=== PATIENT | male | born 1950 | race Caucasian/White ===

== ENCOUNTER → 2016-08-28 | Outpatient (CLI) | payer MEDICARE ==
[~2016-08-28] MED LIST: ACET-819; ASP81TEC PO; CYCL10TA9 PO; LORA10CA; NAPR-243 PO; TRM50T PO
--- NOTE | 2016-09-01 19:22 | ECHOCARDIOGRAPHY REPORT ---
DATE OF SERVICE: 08/28/2016 ECHOCARDIOGRAM ORDERING PHYSICIAN: Naheed Benites APRN CLINICAL DIAGNOSES: Cardiac systolic murmur, coronary artery disease, hyperlipidemia. MEASUREMENTS: Aortic root, 3.9. Left atrium, 4. LV diameter diastolic, 4.2. aVF thickness diastolic, 1.1. LVPW thickness diastolic, 1.1. DESCRIPTION: Two dimensional echocardiography shows normal global left ventricular systolic function without any distinct regional wall motion abnormality. Aortic, mitral and tricuspid valve leaflets show good leaflet excursion. There is moderate aortic valve sclerosis and calcification. Aortic valve leaflet structure is not very well visualized. Doppler imaging shows trivial mitral and tricuspid regurgitation. Pulmonary artery systolic pressure is estimated to be within normal limits. There is no Doppler evidence of any significant valvular stenosis. Subcostal views are limited and difficult. On the views available, there did not appear to be any distinct evidence of significant intracardiac shunt. However, the subcostal views are limited and intracardiac shunt cannot be excluded on this study. CONCLUSIONS: 1. Normal global left ventricular systolic function with ejection fraction 55% of 60%. 2. Trivial mitral and tricuspid regurgitation. 3. Aortic valve sclerosis, moderate, without valvular stenosis. 4. Pulmonary artery systolic pressure is estimated to be within normal limits. Job ID: [id number] DocumentID: [id number] Dictated Date: 09/01/2016 15:37:15 Quality Control Manager Date: 09/01/2016 17:14:44 Dictated By: JAVON COWAN MD, MA, FACP, FACC,
== END ==
LOC: CARD 15:12
PROVIDERS: ATTEND Nurse Practitioner Family
DX: I35.8 Other nonrheumatic aortic valve disorders (principal); I25.10 Atherosclerotic heart disease of native coronary artery without angina pectoris; E78.4 Other hyperlipidemia
CPT/HCPCS: 93306

== ENCOUNTER 2017-01-07 09:26 | Outpatient (CLI) | payer MEDICARE ==
[~2017-01-07] VITALS: Ht 180.3 cm; Wt 100.8 kg
[2017-01-07 09:47] VITALS: BP 132/73
[2017-01-07 10:21] LABS: ANION GAP 8 MMOL/L (5-14); BLOOD UREA NITROGEN 11 MG/DL (7-18); BUN/CREATININE RATIO 11; CALCIUM 8.9 MG/DL (8.5-10.1); CARBON DIOXIDE 24 MMOL/L (21-32); CHLORIDE 106 MMOL/L (98-107); CREATININE SERUM 1.04 MG/DL (0.60-1.30); GFR ESTIMATED > 60; GLUCOSE 109 MG/DL (70-105); POTASSIUM 4.2 MMOL/L (3.6-5.0); SODIUM 138 MMOL/L (135-145)
[2017-01-07] MEDS ORDERED: ASPI-999 PO (10:35)
[2017-01-07] MEDS ORDERED: METO-333 PO (10:35)
[2017-01-07] MEDS ORDERED: FURO-124 PO (10:35)
[2017-01-07] MEDS ORDERED: LEVO137T2 PO (10:35)
[2017-01-07] MEDS ORDERED: POTA10CA43 PO (10:35)
== END 2017-01-07 10:36 | disposition home or self-care (01) ==
LOC: PREOP 09:26
PROVIDERS: ATTEND Orthopaedic Surgery
DX: Z01.812 Encounter for preprocedural laboratory examination (principal); S83.242A Other tear of medial meniscus, current injury, left knee, initial encounter; X58.XXXA Exposure to other specified factors, initial encounter; Y99.8 Other external cause status
CPT/HCPCS: 36415; 80048; 87081

== ENCOUNTER 2017-01-13 07:31 | Day surgery (SDC) | payer MEDICARE ==
--- NOTE | 2017-01-05 16:22 | HISTORY AND PHYSICAL ---
DATE OF SERVICE: This is for outpatient surgery on 01/13/2017 for left knee arthroscopy. HISTORY: The patient is a 66-year-old gentleman with complaints of left knee pain. He has undergone treatment with injections which provided temporary relief of his symptoms. He reports pain on the lateral aspect of his knee. He reports popping, catching and swelling. He also reports pain medially. He ambulates with a cane occasionally due to the pain, due to functional impairment and failure to improve with conservative measures. The patient has elected to proceed with surgical intervention. REVIEW OF SYSTEMS: No chest pain. No shortness of breath, no dysuria. PAST MEDICAL HISTORY: Coronary artery disease, chronic obstructive pulmonary disease, lumbago, hyperlipidemia, hypothyroidism. PAST SURGICAL HISTORY: Rhinoplasty, coronary stent, CABG. FAMILY HISTORY: Cancer, lung disease, ischemic heart disease. PRIMARY CARE PHYSICIAN: Dr. Daniels. MEDICATIONS: 1. Furosemide. 2. Metoprolol. 3. Lipitor. 4. Nitrostat. 5. ProAir. 6. Pravastatin. 7. Prednisone. 8. Advair. 9. Levothyroxine. 10. Aspirin. 11. Potassium. ALLERGIES: No known drug allergies. SOCIAL HISTORY: The patient smokes one pack of cigarettes per day. Drinks alcohol occasionally. PHYSICAL EXAMINATION: GENERAL: The patient is well-developed, well-nourished in no acute distress. HEENT: Normocephalic and atraumatic. Pupils are equal, round and reactive to light. Oropharynx is clear. NECK: Supple. No lymphadenopathy. LUNGS: Clear to auscultation bilaterally. HEART: Regular rate and rhythm. ABDOMEN: Soft, nontender and nondistended. EXTREMITIES: The left knee demonstrates no erythema or warmth. No skin lesions. Range of motion is 0/0/130. He has tenderness over the medial and lateral joint lines and has pain medially with Marsha's. He has pain with with crepitus noted. He is stable in all planes. 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 PLAN: Left knee arthroscopy with partial medial meniscectomy and chondroplasty. The risks, benefits, options, ramifications and recovery have been discussed with the patient. He understands and wishes to proceed. Job ID: [id number] DocumentID: [id number] Dictated Date: 01/05/2017 15:12:34 Structures Technician Date: 01/05/2017 16:21:56 Dictated By: DIONE ISABEL MD
[~2017-01-13] VITALS: Ht 180.3 cm; Wt 100.8 kg
[~2017-01-13 07:31] MED LIST changes: +ASPI-999 PO; +FURO-124 PO; +LEVO137T2 PO; +METO-333 PO; +POTA10CA43 PO
[2017-01-13] MEDS ORDERED: LACTATED RINGERS 1,000 ML IV PRN (07:47)
[2017-01-13] MEDS ORDERED: CATHETER FLUSH 10 ML SYR IV PRN (08:00)
[2017-01-13] MEDS ORDERED: ceFAZolin 1 GM/NS 50 ML IVPB IV ONE ×2 (08:00)
[2017-01-13] MEDS ORDERED: MIDAZOLAM 2 MG/2 ML (VERSED) VIAL IV ONE (08:00)
[2017-01-13] MEDS ORDERED: SEVOFLURANE (ULTANE) 15 ML INHAL SOLN ONE ×2 (08:23→09:13)
[2017-01-13] MEDS ORDERED: fentaNYL INJECTION 100 MCG/2 ML AMP ONE (08:23)
[2017-01-13] MEDS ORDERED: DEXAMETHASONE 10 MG/ML (DECADRON) 1 ML VIAL ONE (08:23)
[2017-01-13] MEDS ORDERED: proPOfol 200 MG/20 ML (DIPRIVAN) VIAL IV ONE (08:23)
[2017-01-13] MEDS ORDERED: LIDOCAINE PF 2% 5 ML (XYLOCAINE) VIAL ONE (08:23)
[2017-01-13] MEDS ORDERED: ONDANSETRON 4 MG/2 ML (SDV) Z0FRAN ONE (08:23)
[2017-01-13] MEDS ORDERED: RT-ALBUINH IH (08:36)
[2017-01-13 08:40] VITALS: BP 126/98
--- NOTE | 2017-01-13 08:47 | Progress Note-Pre Operative ---
Pre-Operative Progress Note H&P Reviewed The H&P was reviewed, patient examined and no changes noted. Date Seen by Provider: Jan 13, 2017 Time Seen by Provider: 08:47 Date H&P Reviewed: Jan 13, 2017 Time H&P Reviewed: 08:47 Pre-Operative Diagnosis: left knee medial meniscus tear and chondromalacia DIONE ISABEL MD Jan 13, 2017 08:47
--- NOTE | 2017-01-13 08:49 | Progress Note-Post Operative ---
Post-Operative Progess Note Surgeon (s)/Semiconductor Package Symbol Stamper (s) Surgeon DIONE ISABEL MD Semiconductor Package Symbol Stamper: Nilay Hernandes Pre-Operative Diagnosis left knee medial meniscus tear and chondromalacia Post-Operative Diagnosis left knee medial and lateral meniscus tears and chondromalacia of the medial femoral condyle and medial tibial plateau Procedure & Operative Findings Date of Procedure 01/13/17 Procedure Performed/Findings left knee arthroscopic partial medial and lateral meniscectomies and chondroplasty of the medial femoral condyle and medial tibial plateau Anesthesia Type GETA Estimated Blood Loss Estimated blood loss (mL): minimal Specimens/Packing Specimens Removed none Packing: none DIONE ISABEL MD Jan 13, 2017 08:49
[2017-01-13] MEDS ORDERED: HYDROcodone/APAP 7.5 MG/325 MG (LORTAB, LORCET PLUS) TABLET PO PRN (09:00)
[2017-01-13] MEDS ORDERED: BUPIVACAINE 0.25% 30 ML (SENSORCAINE) VIAL ONE (09:14)
[2017-01-13] MEDS ORDERED: morphine PF (DURAMORPH) 10 MG/10 ML AMP ONE (09:14)
[2017-01-13] MEDS ORDERED: meTOprolol 5 MG/5 ML (LOPRESSOR) VIAL ONE (09:14)
[2017-01-13] MEDS ORDERED: ONDANSETRON 4 MG/2 ML (SDV) Z0FRAN IVP PRN (09:45)
[2017-01-13] MEDS ORDERED: morphine INJ 10 MG/ML 1ML (SYR OR VIAL) IVP PRN (09:45)
[2017-01-13] MEDS ORDERED: fentaNYL INJECTION 100 MCG/2 ML AMP IVP PRN (09:45)
[2017-01-13 10:20] VITALS: BP 140/89
[2017-01-13] MEDS ORDERED: HYDR-3816 PO (10:43)
[2017-01-13 10:50] VITALS: BP 132/77
--- NOTE | 2017-01-13 11:18 | Physical Therapy Ortho Eval ---
PT Orthopedic Evaluation Type of Surgery Knee Scope Elective Left knee scope due to progressive pain and degeneration. Reports his knee feels better than it did before surgery today. Prior Level of Function Current Living Status: Spouse Locomotion (Upon Admit): Independent Established Durable Medical Eq: Straight Cane Subjective Subjective Pt reports he is feeling good and ready to get home. He is hoping to golf later this week. Entry Into Home: Stairs With Railing Steps Into Home: 2 Steps Accessories: Railing Present Motor Control Motor Control: Motor Control WNL ROM ROM: WFL, except focal deficit left knee active 8-110 degrees Strength Strength: WFL Transfer Transfers (B, C, W/C) (FIM): 6 Gait Gait Assistive Device: Cane Single Point Left Lower Extremity: Left Weight Bearing Status LLE: Weight Bearing/Tolerated Instructed patient on sequence for stair ambulation. Advised to limit time on his leg today with instruction to ice and elevate. Distance (FIM): 3=150 ft Distance: 150 Gait Level of Assist: 6 Summary/Comments demonstrates safe use of single pain cane Treatment Rendered Treatment: Therapeutic Exercises, Issued Written HEP Exercise Instruction: Quad Sets, Straight Leg Raise, Heel Slides Assessment/Goals Goal Time Frame: 1 Visit Understands HEP: Yes Safe Ambulation: Yes Plan Treatment Plan: Discharge Treatment Duration: 1 visit Visits Per Week: 1 PT/Family Agrees to Plan: Yes Time Time In: 1050 Time Out: 1110 Total Billed Treatment Time: 15 Billed Treatment Time visit, evaluation moderate complexity 20 minutes Yes PT/OT Therapy GCodes Therapy Functional Limitation: Physical Therapy Test(s)/Tool used to determine: FIM Functional Limitation-Current Charge Code: MOBCUR Modifier: CH Functional Limitation-Goal Charge Code: MOBGOAL Modifier: CH Functional Limitation-D/C Charge Codes: MOBDC Modifier: CH ASHA LONGORIA PT Jan 13, 2017 11:18
[2017-01-13 11:20] VITALS: BP 116/92
--- NOTE | 2017-01-14 21:04 | OPERATIVE REPORT ---
DATE OF SERVICE: 01/13/2017 PREOPERATIVE DIAGNOSES: 1. Left knee medial meniscal tear. 2. Left knee chondromalacia of the medial femoral condyle. POSTOPERATIVE DIAGNOSES: 1. Left knee medial meniscal tear. 2. Left knee chondromalacia of the medial femoral condyle. 3. Left knee chondromalacia of the medial tibial plateau. 4. Left knee lateral meniscus tear. PROCEDURES: 1. Left knee arthroscopic partial medial meniscectomy. 2. Left knee arthroscopic partial lateral meniscectomy. 3. Left knee arthroscopic chondroplasty of the medial femoral condyle. 4. Left knee arthroscopic chondroplasty of the medial tibial plateau. SURGEON: Omar Isabel M.D. PRESS OFFICER: PRAMOD Baltazar, who assisted throughout the procedure and closed the incisions. ANESTHESIA: General endotracheal by Jaida Valdez CRNA. TOURNIQUET TIME: Not applicable. ESTIMATED BLOOD LOSS: Minimal. DRAINS: None. COMPLICATIONS: None. POSTOPERATIVE PLANS: Routine arthroscopy protocol. The patient was transferred to the recovery room awake and in stable condition. STATEMENT OF MEDICAL NECESSITY: The patient is a 66-year-old gentleman with complaints of left medial knee pain, catching, locking and swelling. He was tender along his medial joint line and had pain medially with Marsha's. He had undergone treatment with injections, anti-inflammatories and rest without relief. Due to functional impairment and failure to improve with conservative measures, the patient elected to proceed with surgical intervention. Examination under anesthesia revealed range of motion 0/3/130 with the negative Jessica, negative anterior and posterior drawer. No varus or valgus laxity and negative pivot shift. ARTHROSCOPIC FINDINGS: The patella demonstrated no gross condylar abnormalities. The medial and lateral gutters were clear. There lateral compartment demonstrated a horizontal cleavage tear of the posterior horn and body of the meniscus involving approximately one third of the meniscus. No significant chondral pathology was noted. The ACL and PCL were intact. The medial compartment demonstrated diffuse grade 3 chondral flaps with the central portion of the femoral condyle in a 15 x 20 area and over the central portion of the tibial plateau in a 15 x 15 area. In addition there was a horizontal cleavage tear of the posterior horn of the medial meniscus involving approximately one half of the posterior horn. PROCEDURE: After risks and benefits of the procedure were discussed and questions were answered, an informed consent was signed and placed on the chart. The operative site was confirmed in the preoperative holding area and initialed by the surgeons. The patient then transported to the operating room and after adequate levels of general endotracheal anesthetic were obtained and time out was called and confirmed the operative site. Exam under anesthesia was performed with the above findings noted. The left lower extremity was prepped and draped in the usual sterile fashion. The knee joint was injected with 60 mL of fluid and a standard inferior lateral portal was placed through the arthroscope. Under direct visualization inferior medial port was created, the menisci cruciates carefully probed with no findings noted. The unstable chondral flaps on the medial femoral condyle and medial tibial plateau were debrided and shaved back to a staple edge. Posterior horn of the medial meniscus was debrided with a biter and shaver removing approximately 1/2 of the posterior horn. This was carefully probed with no further tearing or instability noted. The scope was then redirected into the lateral compartment where the unstable lateral meniscus tear was debrided with a biter and shaver, removing approximately 1/3 of the posterior horn and body. This was carefully probed with no further tearing or instability noted. The knee was copiously irrigated and port site was closed with 3-0 nylon in simple interrupted fashion. The knee was injected with Duramorph and the port sites were infiltrated plain Marcaine and soft dressing was applied and the patient transferred to the recovery room awake in stable condition. Job ID: [id number] DocumentID: [id number] Dictated Date: 01/13/2017 09:30:25 Semiconductor Wafer Inspector Date: 01/13/2017 17:22:56 Dictated By: OMAR IASBEL MD
== END 2017-01-13 11:30 | disposition home or self-care (01) ==
LOC: SDC 07:31
PROVIDERS: ATTEND Orthopaedic Surgery
DX: M23.252 Derangement of posterior horn of lateral meniscus due to old tear or injury, left knee (principal); M23.222 Derangement of posterior horn of medial meniscus due to old tear or injury, left knee; M94.262 Chondromalacia, left knee; I25.10 Atherosclerotic heart disease of native coronary artery without angina pectoris; J44.9 Chronic obstructive pulmonary disease, unspecified; E78.5 Hyperlipidemia, unspecified; E03.9 Hypothyroidism, unspecified; M54.5 Low back pain; Z79.82 Long term (current) use of aspirin; Z79.899 Other long term (current) drug therapy

== ENCOUNTER → 2018-02-15 | Outpatient (CLI) | payer MEDICARE ==
[~2018-02-15] VITALS: Ht 180.3 cm; Wt 100.7 kg
[~2018-02-15] MED LIST changes: +CATHETER FLUSH 10 ML SYR IV PRN; +HYDR-34 PO; +REGADENOSON 0.4 MG/5 ML SYR (LEXISCAN) IV ONE; +RT-ALBUINH IH
--- NOTE | 2018-02-16 08:54 | STRESS TEST ---
DATE OF SERVICE: 02/15/2018 RESTING AND POST REGADENOSON TECHNETIUM-99M TETROFOSMIN SPECT CT IMAGING ORDERING PHYSICIAN: Naheed Benites APRN. CLINICAL DIAGNOSES: Shortness of breath, coronary artery disease. Baseline images were carried out after injection of 11 mCi technetium-99m Tetrofosmin. This was followed by 0.4 mg regadenoson and 29.8 mCi technetium-99m Tetrofosmin for stress imaging. The electrocardiogram showed sinus rhythm at baseline. The electrocardiogram did not change significantly with the regadenoson infusion. The patient tolerated the procedure well. Review of images at rest and following stress does not indicate any distinct perfusion defects consistent with myocardial ischemia or infarction. Some degree of diaphragmatic attenuation seen both at rest and following regadenoson infusion. Gated images show normal global left ventricular systolic function with normal regional wall motion, including the diaphragmatic wall of the left ventricle. Left ventricular ejection fraction is calculated to be 62%. Left ventricular end diastolic volume is 76 mL. TID is absent (1.12). CONCLUSIONS: 1. No evidence of any significant myocardial ischemia or infarction on this study. 2. Normal regional wall motion. 3. Normal global left ventricular systolic function with a calculated ejection fraction of 62%. Job ID: [id number] DocumentID: [id number] Dictated Date: 02/16/2018 08:23:53 Building Analyst/Supervisor Date: 02/16/2018 08:53:14 Dictated By: JAVON COAWN MD, MA, FACP, FACC, MTDD
== END ==
LOC: CARD 11:33
PROVIDERS: ATTEND Nurse Practitioner Family
DX: I25.10 Atherosclerotic heart disease of native coronary artery without angina pectoris (principal); E78.5 Hyperlipidemia, unspecified; R06.02 Shortness of breath
CPT/HCPCS: 78452; 93017

== ENCOUNTER → 2019-10-31 | Outpatient (CLI) | payer MEDICARE ==
[~2019-10-31] MED LIST changes: -CATHETER FLUSH 10 ML SYR IV PRN; -REGADENOSON 0.4 MG/5 ML SYR (LEXISCAN) IV ONE
[2019-10-31 09:35] LABS: BASOPHILS # (AUTO) 0.1 10^3/uL (0.0-0.1); BASOPHILS % (AUTO) 2 % (0-10); EOSINOPHILS # (AUTO) 0.3 10^3/uL (0.0-0.3); EOSINOPHILS % (AUTO) 5 % (0-10); HEMATOCRIT 42 % (40-54); HEMOGLOBIN 14.4 G/DL (13.3-17.7); LYMPHOCYTES # (AUTO) 2.1 X 10^3 (1.0-4.0); LYMPHOCYTES % (AUTO) 31 % (12-44); MEAN CORPUSCULAR HEMOGLOBIN 36 PG (25-34); MEAN CORPUSCULAR HGB CONC 34 G/DL (32-36); MEAN CORPUSCULAR VOLUME 105 FL (80-99); MEAN PLATELET VOLUME 10.6 FL (7.4-10.4); MONOCYTES # (AUTO) 0.7 X 10^3 (0.0-1.0); MONOCYTES % (AUTO) 11 % (0-12); NEUTROPHILS # (AUTO) 3.4 X 10^3 (1.8-7.8); NEUTROPHILS % (AUTO) 51 % (42-75); PLATELET COUNT 166 10^3/uL (130-400); RED CELL DISTRIBUTION WIDTH 15.6 % (10.0-14.5); WHITE BLOOD COUNT 6.7 10^3/uL (4.3-11.0)
[2019-10-31 09:58] LABS: ALBUMIN 4.3 GM/DL (3.2-4.5); BILIRUBIN,TOTAL 0.5 MG/DL (0.1-1.0); CALCIUM 9.2 MG/DL (8.5-10.1); CREATININE SERUM 1.53 MG/DL (0.60-1.30); ERYTHROCYTE SEDIMENTATION RATE 9 MM/HR (0-30); MAGNESIUM 2.3 MG/DL (1.6-2.4); POTASSIUM 4.3 MMOL/L (3.6-5.0); TOTAL PROTEIN 7.3 GM/DL (6.4-8.2)
== END ==
LOC: CARD 08:53
PROVIDERS: ATTEND Internal Medicine Cardiovascular Disease
DX: I08.0 Rheumatic disorders of both mitral and aortic valves (principal); E78.5 Hyperlipidemia, unspecified; I65.29 Occlusion and stenosis of unspecified carotid artery; I25.10 Atherosclerotic heart disease of native coronary artery without angina pectoris; J44.9 Chronic obstructive pulmonary disease, unspecified
CPT/HCPCS: 36415; 80053; 80061; 83735; 84443; 85025; 85652; 93306

== ENCOUNTER → 2021-01-03 | Outpatient (CLI) | payer MEDICARE ==
[~2021-01-03] MED LIST changes: +CATHETER FLUSH 10 ML SYR IV PRN; +HOLD METFORMIN - RECEIVED CONTRAST 20 ML VIAL IV SCH; +IOHEXOL 350 MG/ML 100 ML (OMNIPAQUE 350) VIAL IV ONE; +NS 100 ML (IVPB) BAG IV ONE
[2021-01-03 12:19] LABS: ALBUMIN 4.3 GM/DL (3.2-4.5); BILIRUBIN,TOTAL 0.9 MG/DL (0.1-1.0); CALCIUM 9.7 MG/DL (8.5-10.1); CREATININE SERUM 1.38 MG/DL (0.60-1.30); POTASSIUM 4.4 MMOL/L (3.6-5.0); TOTAL PROTEIN 7.7 GM/DL (6.4-8.2)
--- NOTE | 2021-01-03 14:05 | Diagnostic Imaging Report ---
PROCEDURE: CT abdomen and pelvis with contrast. TECHNIQUE: Multiple contiguous axial images were obtained through the abdomen and pelvis after administration of intravenous contrast. Auto Exposure Controls were utilized during the CT exam to meet ALARA standards for radiation dose reduction. All CT scans use one or more of the following dose optimizing techniques: automated exposure control, MA and/or KvP adjustment based on patient size and exam type or iterative reconstruction. INDICATION: Left-sided abdominal pain and lump. No prior studies are available for comparison. Imaging through lung bases does show some linear scarring in the right lower lobe and lingula. The liver demonstrates diffuse low density consistent with hepatic steatosis. No liver masses detected. Gallbladder is unremarkable. No biliary duct dilatation is seen. The pancreas and spleen are unremarkable. No adrenal mass is detected. Kidneys are unremarkable. Aorta is calcified but nonaneurysmal. No central retroperitoneal or mesenteric lymphadenopathy is detected. The bowel loops appear to be normal caliber. No obstruction. No free fluid or fluid collection is seen. The bladder and prostate are unremarkable. No pelvic lymphadenopathy is seen. Bony structures are nonacute. There is grade 1 spondylolisthesis of L5 on S1 with bilateral pars defects. IMPRESSION: 1. Hepatic steatosis. 2. No acute feature in the abdomen or pelvis is identified. Dictated by: Dictated on workstation # [id number]
== END ==
LOC: RAD 11:10
PROVIDERS: ATTEND Internal Medicine
DX: K76.0 Fatty (change of) liver, not elsewhere classified (principal)
CPT/HCPCS: 36415; 74177; 80053

== ENCOUNTER 2021-03-18 05:29 | Outpatient (RCR) | payer MEDICARE ==
[~2021-03-18] VITALS: Ht 180.3 cm; Wt 98.9 kg
[~2021-03-18 05:29] MED LIST changes: -CATHETER FLUSH 10 ML SYR IV PRN; -HOLD METFORMIN - RECEIVED CONTRAST 20 ML VIAL IV SCH; -IOHEXOL 350 MG/ML 100 ML (OMNIPAQUE 350) VIAL IV ONE; -NS 100 ML (IVPB) BAG IV ONE
== END 2021-03-18 15:16 | disposition home or self-care (01) ==
LOC: PREOP 05:29
PROVIDERS: ATTEND Surgery
DX: Z01.812 Encounter for preprocedural laboratory examination (principal); R63.4 Abnormal weight loss; Z20.822 Contact with and (suspected) exposure to COVID-19
CPT/HCPCS: 87635

== ENCOUNTER 2021-04-18 05:27 | Outpatient (RCR) | payer MEDICARE ==
[~2021-04-18] VITALS: Ht 180.3 cm; Wt 98.9 kg
== END 2021-04-18 09:41 | disposition home or self-care (01) ==
LOC: PREOP 05:27
PROVIDERS: ATTEND Surgery
DX: Z01.812 Encounter for preprocedural laboratory examination (principal); R63.4 Abnormal weight loss; U07.1 COVID-19
CPT/HCPCS: 87635

== ENCOUNTER → 2021-06-02 | Outpatient (CLI) | payer MEDICARE ==
[~2021-06-02] VITALS: Ht 180 cm; Wt 99.0 kg
== END | disposition home or self-care (01) ==
LOC: PREOP 05:42
PROVIDERS: ATTEND Surgery
DX: Z01.818 Encounter for other preprocedural examination (principal)

== ENCOUNTER 2021-06-10 07:53 | Day surgery (SDC) | payer MEDICARE ==
[~2021-06-10] VITALS: Ht 180 cm; Wt 99.0 kg
[2021-06-10] MEDS ORDERED: HURRICAINE EXT TUBE (BENZOCAINE) XX PRN (08:00)
[2021-06-10] MEDS ORDERED: LACTATED RINGERS 1,000 ML IV ONE ×2 (08:05→10:19)
[2021-06-10] MEDS ORDERED: LACTATED RINGERS 1,000 ML IV STA (08:06)
[2021-06-10 08:20] VITALS: BP 124/88
[2021-06-10] MEDS ORDERED: MIDAZOLAM 2 MG/2 ML (VERSED) VIAL ONE (09:05)
[2021-06-10] MEDS ORDERED: PROPOFOL INJECTION 50 ML IV ONE (09:05)
[2021-06-10] MEDS ORDERED: proPOfol 200 MG/20 ML (DIPRIVAN) VIAL IV ONE (10:42)
[2021-06-10 11:00] VITALS: BP 102/65
[2021-06-10 11:05] VITALS: BP 99/65
[2021-06-10 11:10] VITALS: BP 111/63
--- NOTE | 2021-06-10 11:11 | Progress Note-Post Operative ---
Post-Operative Progess Note Surgeon (s)/Commodity Lead (s) Surgeon KALA SCHMITT DO Commodity Lead: na Pre-Operative Diagnosis wt loss Post-Operative Diagnosis mucosal change duodenum, reflux esophagitis, colon polyps diverticulosis Procedure & Operative Findings Date of Procedure 06/10/21 Procedure Performed/Findings egd c biopsies, colonoscopy with hot bx polypectomy x 21 snare polypectomy x 7 carol inking of polyp in sigmoid. Anesthesia Type per mda Estimated Blood Loss Estimated blood loss (mL): scant Specimens/Packing Specimens Removed duodenum, antrum, ge, colon polyps KALA SCHMITT DO Jun 10, 2021 11:11
--- NOTE | 2021-06-10 11:13 | Discharge Inst-Simple/Standard ---
Discharge Inst-Standard Patient Instructions/Follow Up Plan of Care/Instructions/FU: 2 weeks Jaimee Activity as Tolerated: Yes Discharge Diet: Regular Diet (high fiber) KALA SCHMITT DO Jun 10, 2021 11:13
[2021-06-10 11:30] VITALS: BP 104/77
[2021-06-10 11:51] VITALS: BP 104/77
--- NOTE | 2021-06-10 14:39 | Anesthesia-General Post-Op ---
MAC Patient Condition Mental Status/LOC: Same as Preop Cardiovascular: Satisfactory Nausea/Vomiting: Absent Respiratory: Satisfactory Pain: Controlled Complications: Absent Post Op Complications Complications None Follow Up Care/Instructions Patient Instructions None needed. Anesthesiology Discharge Order Discharge Order Patient was doing well after the procedure, no complaints, stable vital signs, no apparent adverse anesthesia problems. PAULY WHITTINGTON DO Jun 10, 2021 14:39
--- NOTE | 2021-06-10 16:58 | OPERATIVE REPORT ---
DATE OF SERVICE: 06/10/2021 PREOPERATIVE DIAGNOSIS: Weight loss. POSTOPERATIVE DIAGNOSES: Mucosal change duodenum, reflux esophagitis, colon polyps x28, diverticulosis. PROCEDURES: EGD with biopsies, colonoscopy with hot biopsy polypectomy x21, snare polypectomy x7. Kaylee inking of the polyp and sigmoid. SURGEON: Kala Hermosillo DO ANESTHESIA: Per . ESTIMATED BLOOD LOSS: Scant. COMPLICATIONS: None. INDICATIONS: The patient is a 70-year-old male who has had some weight loss and also some left-sided abdominal pain. He understands risks and benefits of procedure and wishes to proceed. Consent was signed in the chart. DESCRIPTION OF PROCEDURE: The patient was taken to the endoscopy suite, placed in left lateral recumbent position. Timeout was performed. Scope was inserted in mouth, down the esophagus, stomach and into the duodenum without difficulty. No polyps, masses or ulcerations within the duodenum. There was a slight mucosal change in the second portion, which cold biopsy was obtained. Scope was slowly retracted back into the stomach where it was further insufflated. No polyps, masses or ulcerations. Biopsy of the antrum was obtained. Scope was retroflexed noting no other pathology, may be really a small hiatal hernia. Scope was returned to its normal position, slowly withdrawn to the distal esophagus, some changes of reflux esophagitis present. Biopsy of the GE junction was obtained. Scope was slowly retracted back to completely remove, noting no other pathology. Digital rectal exam was performed, palpable polyp in the rectum, no masses or ulcerations. Scope was inserted in the rectum and advanced all the way to cecum with minimal difficulty. Prep was adequate with some irrigation and suction. Scope was then slowly retracted back. There were three polyps in the cecum, which hot biopsy polypectomy was performed. Scope was then continuously retracted back in the ascending colon, where 4 polyps were present, which hot biopsy polypectomy was performed. Scope was then continued to be retracted back and in transverse colon, three polyps were present, which hot biopsy polypectomy was performed. In the descending colon, 6 polyps were present, which hot biopsy polypectomy was performed. In the sigmoid, there were 4 polyps, which snare polypectomy was performed. A larger polyp was present, which had to be taken out in piecemeal. This did have the appearance of some fat coming out after it was snared that was present, may be suggestive of a lipoma in this area as well. Just distal to this area, 2 mL of Kaylee ink was tattooed, so this area could be reexamined later. Scope was then continuously slowly retracted back into the rectum where there are 5 polyps, which hot biopsy polypectomy was performed. There were 2 polyps, right at the distal rectum, which snare polypectomies were performed. Scope was retroflexed noting no other pathology. Scope was returned to its normal position, slowly withdrawn until completely removed. The patient tolerated the procedure well without any complications, taken to recovery room in stable condition. RECOMMENDATIONS: The patient will have repeat colonoscopy in 3 months to reevaluate these areas. Await biopsy results as well. Further recommendations pending biopsy results and symptoms. Job ID: [id number] DocumentID: [id number] Dictated Date: 06/10/2021 11:17:31 Track Layer Head Date: 06/10/2021 16:57:24 Dictated By: KALA HERMOSILLO DO
== END 2021-06-10 11:52 | disposition home or self-care (01) ==
LOC: ENDO 07:53
PROVIDERS: ATTEND Surgery
DX: D12.0 Benign neoplasm of cecum (principal); D12.2 Benign neoplasm of ascending colon; D12.3 Benign neoplasm of transverse colon; D12.4 Benign neoplasm of descending colon; D12.5 Benign neoplasm of sigmoid colon; D12.8 Benign neoplasm of rectum; K21.00 Gastro-esophageal reflux disease with esophagitis, without bleeding; K57.30 Diverticulosis of large intestine without perforation or abscess without bleeding; I95.9 Hypotension, unspecified; Z72.0 Tobacco use
CPT/HCPCS: 88305

== ENCOUNTER → 2021-11-17 | Outpatient (CLI) | payer MEDICARE | LOC: CARD 13:51 | PROVIDERS: ATTEND Nurse Practitioner Family | DX: I35.0 Nonrheumatic aortic (valve) stenosis (principal) | CPT/HCPCS: 93306 ==

== ENCOUNTER → 2021-12-02 | Outpatient (CLI) | payer MEDICARE ==
[~2021-12-02] VITALS: Ht 180 cm; Wt 91.0 kg
[~2021-12-02] MED LIST changes: +REGADENOSON 0.4 MG/5 ML SYR (LEXISCAN) IV ONE
[2021-12-02] MEDS: CATHETER FLUSH 10 ML SYR IVP PRN ×2 (07:57→09:22)
[2021-12-02 09:20] VITALS: BP 129/93
== END ==
LOC: CARD 07:37
PROVIDERS: ATTEND Nurse Practitioner Family
DX: I25.10 Atherosclerotic heart disease of native coronary artery without angina pectoris (principal)
CPT/HCPCS: 78452; 93017; A9502

== ENCOUNTER → 2021-12-17 | Outpatient (CLI) | payer MEDICARE ==
[~2021-12-17] MED LIST changes: +CATHETER FLUSH 10 ML SYR IV PRN; +HOLD METFORMIN - RECEIVED CONTRAST 20 ML VIAL IV SCH; +IOHEXOL 350 MG/ML 100 ML (OMNIPAQUE 350) VIAL IV ONE; +NS 100 ML (IVPB) BAG IV ONE; -REGADENOSON 0.4 MG/5 ML SYR (LEXISCAN) IV ONE
[2021-12-17 09:24] LABS: HEMATOCRIT 49 % (40-54); HEMOGLOBIN 16.5 g/dL (13.3-17.7); MEAN CORPUSCULAR HEMOGLOBIN 36 pg (25-34); MEAN CORPUSCULAR HGB CONC 34 g/dL (32-36); MEAN CORPUSCULAR VOLUME 105 fL (80-99); MEAN PLATELET VOLUME 10.2 fL (9.0-12.2); PLATELET COUNT 172 10^3/uL (130-400); WHITE BLOOD COUNT 7.2 10^3/uL (4.3-11.0)
[2021-12-17 09:52] LABS: ALBUMIN 4.4 GM/DL (3.2-4.5); BILIRUBIN,TOTAL 0.6 MG/DL (0.1-1.0); CALCIUM 9.3 MG/DL (8.5-10.1); CREATININE SERUM 1.19 MG/DL (0.60-1.30); POTASSIUM 4.1 MMOL/L (3.6-5.0); TOTAL PROTEIN 7.8 GM/DL (6.4-8.2)
--- NOTE | 2021-12-17 10:58 | Diagnostic Imaging Report ---
PROCEDURE: CT abdomen and pelvis with contrast. TECHNIQUE: Multiple contiguous axial images were obtained through the abdomen and pelvis after administration of intravenous contrast. Auto Exposure Controls were utilized during the CT exam to meet ALARA standards for radiation dose reduction. All CT scans use one or more of the following dose optimizing techniques: automated exposure control, MA and/or KvP adjustment based on patient size and exam type or iterative reconstruction. INDICATION: Left lower quadrant palpable abnormality. COMPARISON: Abdominal/pelvic CT of 01/03/2021. FINDINGS: There is no abdominal/pelvic ascites, abscess, hematoma, or acute fluid collection. No abdominal wall defect or hernia is found. No abdominal wall mass or fluid collection. There is stool within the colon. The fecal load is not grossly pathologic. The liver, gallbladder, bile ducts, spleen, adrenals, and pancreas are unremarkable. The unobstructed kidneys are normal. There are aortoiliac and mesenteric atherosclerotic vascular calcifications, chronic. No vascular obstruction or thrombus. No findings of end organ ischemia. There are a few noninflamed scattered sigmoid diverticula. The urinary bladder wall is mildly thickened but poorly distended, likely on that basis. No perinephric or perivesical edema. No hydroureteronephrosis. No opaque stone. IMPRESSION: 1. Extensive atherosclerotic disease without demonstrated thrombus, vessel rupture, or acute arterial pathology and no evidence for end organ ischemia. 2. No mass, fluid collection, or hernia. No findings to explain the palpable abnormality described in the left lower quadrant. Dictated by: Dictated on workstation # [id number]
== END ==
LOC: RAD 10:15
PROVIDERS: ATTEND Surgery
DX: K55.1 Chronic vascular disorders of intestine (principal)
CPT/HCPCS: 36415; 74177; 80053; 85027

== ENCOUNTER 2022-01-14 06:20 | Outpatient (CLI) | payer MEDICARE ==
[~2022-01-14] VITALS: Ht 180.3 cm; Wt 92.1 kg
[~2022-01-14 06:20] MED LIST changes: -CATHETER FLUSH 10 ML SYR IV PRN; -HOLD METFORMIN - RECEIVED CONTRAST 20 ML VIAL IV SCH; -IOHEXOL 350 MG/ML 100 ML (OMNIPAQUE 350) VIAL IV ONE; -NS 100 ML (IVPB) BAG IV ONE
== END 2022-01-14 12:36 | disposition home or self-care (01) ==
LOC: PREOP 06:20
PROVIDERS: ATTEND Surgery
DX: Z01.818 Encounter for other preprocedural examination (principal)

== ENCOUNTER 2022-01-27 08:16 | Day surgery (SDC) | payer MEDICARE ==
[~2022-01-27] VITALS: Ht 180.3 cm; Wt 92.1 kg
[2022-01-27] MEDS ORDERED: LACTATED RINGERS 1,000 ML IV STA (08:28)
[2022-01-27 08:45] VITALS: BP 138/85
[2022-01-27] MEDS ORDERED: PROPOFOL INJECTION 50 ML IV ONE (11:16)
[2022-01-27 12:06] VITALS: BP 106/63
[2022-01-27 12:11] VITALS: BP 102/70
[2022-01-27 12:15] VITALS: BP 102/70
--- NOTE | 2022-01-27 12:37 | Progress Note-Post Operative ---
Post-Operative Progess Note Surgeon (s)/Steward/Stewardess Dining Room (s) Surgeon KALA SCHMITT DO Steward/Stewardess Dining Room: None Pre-Operative Diagnosis hx of polyps Post-Operative Diagnosis colon polyps, rectal polyp Procedure & Operative Findings Date of Procedure 01/27/22 Procedure Performed/Findings colonoscopy with hot biopsy polypectomy x8 colonoscopy with hot snare biopsy polypectomy x1 Anesthesia Type per asphalt heater operator Estimated Blood Loss Estimated blood loss (mL): none Specimens/Packing Specimens Removed Ascending colon polyp x4 Descending colon polyp x2 Sigmoid colon polyp x2 Rectal colon polyp x1 KALA SCHMITT DO Jan 27, 2022 12:37
--- NOTE | 2022-01-27 12:38 | Discharge Inst-Simple/Standard ---
Discharge Inst-Standard Reconcile Patient Problems Problems Reviewed?: Yes Patient Instructions/Follow Up Plan of Care/Instructions/FU: Follow up with Dr. Hermosillo in 2 weeks Activity as Tolerated: Yes Discharge Diet: Regular Diet KALA HERMOSILLO DO Jan 27, 2022 12:38
[2022-01-27 12:50] VITALS: BP 102/70
--- NOTE | 2022-01-27 14:54 | Anesthesia-General Post-Op ---
MAC Patient Condition Mental Status/LOC: Same as Preop Cardiovascular: Satisfactory Nausea/Vomiting: Absent Respiratory: Satisfactory Pain: Controlled Complications: Absent Post Op Complications Complications None Follow Up Care/Instructions Patient Instructions None needed. Anesthesiology Discharge Order Discharge Order Patient is doing well, no complaints, stable vital signs, no apparent adverse anesthesia problems. No complications reported per nursing. TICO BROUSSARD CRNA Jan 27, 2022 14:54
--- NOTE | 2022-01-27 21:05 | OPERATIVE REPORT ---
DATE OF SERVICE: 01/27/2022 PREOPERATIVE DIAGNOSIS: History of polyps. POSTOPERATIVE DIAGNOSIS: Colon polyps. PROCEDURE: Colonoscopy with hot biopsy polypectomy x8 and snare polypectomy x1. SURGEON: Kala Hermosillo DO ANESTHESIA: Per PARKING LOT ATTENDANT AND CASHIER. ESTIMATED BLOOD LOSS: None. COMPLICATIONS: None. INDICATIONS: The patient is a 71-year-old male with history of polyps. He understands risks and benefits of procedure and wishes to proceed. Consent was signed in the chart. DESCRIPTION OF PROCEDURE: The patient was taken to the endoscopy suite, placed in left lateral recumbent position. Timeout was performed. Scope was inserted in the rectum, advanced all the way to cecum with minimal difficulty. Prep was adequate with irrigation and suction. Scope was slowly retracted back. No polyps, masses or ulcerations in the cecum. Ascending colon, 2 polyps were present. In the proximal portion, which hot biopsy polypectomy was performed. Scope was then continuously retracted back and two more polyps present in the ascending colon, which hot biopsy polypectomy was performed. Scope was then continuously retracted back. No polyps, masses or ulcerations in the transverse colon and descending colon, 2 polyps were present, which hot biopsy polypectomy was performed. Scope was then continuously retracted back in the sigmoid colon where two more polyps were present, which hot biopsy polypectomy was performed. Scope was then continuously retracted back in the rectum where a large flat polyp was present, which snare polypectomy was performed. Scope was retroflexed noting no other pathology. Scope was returned to its normal position, slowly withdrawn until completely removed. The patient tolerated the procedure well without any complications, taken to recovery room in stable condition. RECOMMENDATIONS: We will recommend repeat colonoscopy in one year depending upon pathology, possibly 3 years. Recommend a repeat colonoscopy in 1 to 3 years pending upon pathology. Any issues before that would reevaluate at that time. He will follow up in office in two weeks to discuss pathology results. Job ID: [id number] DocumentID: [id number] Dictated Date: 01/27/2022 13:12:12 Delivery Stock Clerk Date: 01/27/2022 21:04:28 Dictated By: KALA HERMOSILLO DO
== END 2022-01-27 12:50 | disposition home or self-care (01) ==
LOC: ENDO 08:16
PROVIDERS: ATTEND Surgery
DX: Z12.11 Encounter for screening for malignant neoplasm of colon (principal); D12.2 Benign neoplasm of ascending colon; D12.4 Benign neoplasm of descending colon; D12.5 Benign neoplasm of sigmoid colon; D12.8 Benign neoplasm of rectum; F17.210 Nicotine dependence, cigarettes, uncomplicated; E66.9 Obesity, unspecified; Z79.82 Long term (current) use of aspirin; Z68.28 Body mass index [BMI] 28.0-28.9, adult
CPT/HCPCS: 88305

== ENCOUNTER 2022-02-01 19:03 | Inpatient (IN) | payer MEDICARE ==
[~2022-02-01] VITALS: Ht 180 cm; Wt 95.4 kg
[~2022-02-01 19:03] MED LIST changes: +ALBU8.5H6 IH; -RT-ALBUINH IH
[2022-02-01] MEDS ORDERED: NS IV 1000 ML 1,000 ML ONE (19:12)
--- NOTE | 2022-02-01 19:17 | ED GI ---
General Chief Complaint: Abdominal/GI Problems Stated Complaint: POSSIBLE GI BLEED Source of Information: Patient, EMS Exam Limitations: No Limitations History of Present Illness Date Seen by Provider: Feb 01, 2022 Time Seen by Provider: 19:03 Initial Comments 71-year-old male presents the emergency department today for rectal bleeding. He had a colonoscopy with polypectomy x9 on 01/27. Today he was going to golf and passed out next to his vehicle. He was found in a large pool of blood according to EMS. Patient himself states rectal bleeding was abrupt. He has diffuse abdominal tenderness. Initial blood pressure was reportedly in the 60s systolic. He received 2 to 500 cc of crystalloid during transport. He tells me he is supposed to be on blood thinning medications but has not had any of his medications in at least a month due to financial issues. He does tell me that he had some abdominal pain [place] and somebody advised him to take nitroglycerin, which he did. Allergies and Home Medications Allergies Coded Allergies: No Known Drug Allergies (Unverified , 01/07/17) Patient Home Medication List Home Medication List Reviewed: Yes Albuterol Sulfate (Proair Hfa) 1 Puff Puff, 2 PUFF IH Q4H PRN for SHORTNESS OF BREATH, (Reported) Entered as Reported by: ROSA KAMARA on 01/13/17 0836 Levothyroxine Sodium (Levothyroxine Sodium) 137 Mcg Tablet, 137 MCG PO DAILY, (Reported) Entered as Reported by: MELANIA KWOK on 01/07/17 1035 Metoprolol Tartrate (Metoprolol Tartrate) 25 Mg Tablet, 25 MG PO BID, (Reported) Entered as Reported by: MELANIA KWOK on 01/07/17 1035 Review of Systems Review of Systems Constitutional: no symptoms reported EENTM: No Symptoms Reported Respiratory: No Symptoms Reported Cardiovascular: No Symptoms Reported Gastrointestinal: Abdominal Pain, Rectal Bleeding Genitourinary: No Symptoms Reported Musculoskeletal: no symptoms reported Skin: no symptoms reported Psychiatric/Neurological: No Symptoms Reported Endocrine: No Symptoms Reported Hematologic/Lymphatic: No Symptoms Reported Past Dyfujgu-Kjdzku-Tfwjuf Hx Patient Social History Tobacco Use?: No Use of E-Cig and/or Vaping dev: No Substance use?: No Alcohol Use?: Yes Immunizations Up To Date Tetanus Booster (TDap): Unknown First/Initial COVID19 Vaccinat: NO Second COVID19 Vaccination Suhas: NO Third COVID19 Vaccination Date: NO Seasonal Allergies Seasonal Allergies: Yes Past Medical History Surgeries: Yes (CARDIAC BYPASS 2011, CARDIAC STENTS PRIOR TO BYPASS) Respiratory: Yes COPD Cardiac: Yes (STENTS THEN BYPASS) Coronary Artery Disease, Hypertension, Irregular Heartbeat Neurological: No Reproductive Disorders: No Sexually Transmitted Disease: No HIV/AIDS: No Genitourinary: No Gastrointestinal: Yes (WT LOSS) Musculoskeletal: Yes Arthritis, Chronic Back Pain Endocrine: Yes Hypothyroidsim HEENT: Yes Tinnitis Loss of Vision: Bilateral Hearing Impairment: Denies Cancer: No Psychosocial: No Integumentary: No Blood Disorders: No Adverse Reaction/Blood Tranf: No Family Medical History Reviewed Nursing Family Hx No Pertinent Family Hx Physical Exam Vital Signs Vital Signs - First Documented 02/01/22 19:06 Temp 34.8 Pulse 81 Resp 16 B/P (MAP) 105/99 (101) Pulse Ox 94 O2 Delivery Room Air Capillary Refill : Height/Weight/BMI Height: 5'11.00" Weight: 222lbs. 0.0oz. 100.849237we; 28.33 BMI Method:Stated General Appearance: WD/WN, no apparent distress HEENT: normal ENT inspection, pharynx normal Neck: non-tender, full range of motion, supple, normal inspection Respiratory: chest non-tender, lungs clear, normal breath sounds, no respiratory distress, no accessory muscle use Cardiovascular: regular rate, rhythm, no edema, no gallop, no JVD, no murmur Gastrointestinal: normal bowel sounds, soft, no organomegaly, other (Large- volume rectal bleeding. Diffuse abdominal tenderness with voluntary guarding.) Extremities: normal range of motion, non-tender, normal inspection, no pedal edema, no calf tenderness, normal capillary refill Back: normal inspection, no CVA tenderness, no vertebral tenderness Neurologic/Psychiatric: alert, normal mood/affect, oriented x 3 Skin: normal color, warm/dry Lymphatic: no adenopathy Progress/Results/Core Measures Results/Orders Lab Results Laboratory Tests Test 02/01/22 19:25 Range/Units White Blood Count 9.0 4.3-11.0 10^3/uL Red Blood Count 3.15 L 4.30-5.52 10^6/uL Hemoglobin 11.1 L 13.3-17.7 g/dL Hematocrit 31 L 40-54 % Mean Corpuscular Volume 100 H 80-99 fL Mean Corpuscular Hemoglobin 35 H 25-34 pg Mean Corpuscular Hemoglobin Concent 35 32-36 g/dL Red Cell Distribution Width 14.1 10.0-14.5 % Platelet Count 151 130-400 10^3/uL Mean Platelet Volume 10.7 9.0-12.2 fL Immature Granulocyte % (Auto) 1 % Neutrophils (%) (Auto) 50 42-75 % Lymphocytes (%) (Auto) 36 12-44 % Monocytes (%) (Auto) 10 0-12 % Eosinophils (%) (Auto) 3 0-10 % Basophils (%) (Auto) 1 0-10 % Neutrophils # (Auto) 4.4 1.8-7.8 10^3/uL Lymphocytes # (Auto) 3.2 1.0-4.0 10^3/uL Monocytes # (Auto) 0.9 0.0-1.0 10^3/uL Eosinophils # (Auto) 0.2 0.0-0.3 10^3/uL Basophils # (Auto) 0.1 0.0-0.1 10^3/uL Immature Granulocyte # (Auto) 0.1 0.0-0.1 10^3/uL Sodium Level 135 135-145 MMOL/L Potassium Level 3.1 L 3.6-5.0 MMOL/L Chloride Level 113 H 98-107 MMOL/L Carbon Dioxide Level 15 L 21-32 MMOL/L Anion Gap 7 5-14 MMOL/L Blood Urea Nitrogen 12 7-18 MG/DL Creatinine 1.26 0.60-1.30 MG/DL Estimat Glomerular Filtration Rate 60 BUN/Creatinine Ratio 10 Glucose Level 95 70-105 MG/DL Calcium Level 7.1 L 8.5-10.1 MG/DL Corrected Calcium 7.9 L 8.5-10.1 MG/DL Total Bilirubin 0.3 0.1-1.0 MG/DL Aspartate Amino Transf (AST/SGOT) 13 5-34 U/L Alanine Aminotransferase (ALT/SGPT) 9 0-55 U/L Alkaline Phosphatase 35 L 40-136 U/L Total Protein 5.0 L 6.4-8.2 GM/DL Albumin 3.0 L 3.2-4.5 GM/DL My Orders Orders - CONCEPCION JAY DO Comprehensive Metabolic Panel (02/01/22 19:13) Cbc With Automated Diff (02/01/22 19:13) Abdomen, Flat & Upright/Decub (02/01/22 19:13) Blood Products Transfusion: Re (02/01/22 19:14) Ns Iv 1000 Ml (Sodium Chloride 0.9%) (02/01/22 19:12) Ns Iv 500 Ml (Sodium Chloride 0.9%) (02/01/22 19:28) Type And Screen (02/01/22 19:25) Medications Given in ED Current Medications Medications Dose Ordered Sig/Sidney Route Start Time Stop Time Status Last Admin Dose Admin Sodium Chloride 500 ml @ ud STK-MED ONCE .ROUTE 02/01/22 19:28 02/01/22 19:31 DC 02/01/22 19:32 100 MLS/HR Sodium Chloride 1,000 ml @ ud STK-MED ONCE .ROUTE 02/01/22 19:12 02/01/22 19:16 DC 02/01/22 19:30 999 MLS/HR Vital Signs/I&O 02/01/22 02/01/22 19:06 19:38 Temp 34.8 Pulse 81 62 Resp 16 B/P (MAP) 105/99 (101) 114/70 (85) Pulse Ox 94 94 O2 Delivery Room Air Room Air Diagnostic Imaging Diagonstic Imaging: Xray Plain Films/CT/US/NM/MRI: abdomen Comments No free air Critical Care Note Critical Care Start Time: 19:05 Stop Time: 20:30 Total Time (minutes) 85 Departure Communication (Admissions) Contacted Dr. Pearson immediately upon patient arrival due to instability and possible surgical intervention. Requests hemoglobin, KUB and return call. Once completed call him back and the bleeding had improved significantly as have blood pressure. I think blood pressure is lower at least in part secondary to nitroglycerin use as a rebound and rapidly even prior to blood administration. He was given 2 units of PRBCs, 1 L of normal saline. His hemoglobin has dropped from 16 to 11 in the span of a month. He is having minimal active bleeding at this time. He is remained alert, oriented and is stable for admission at this time with a guarded prognosis. I spoke with Dr. Hough who accepts admission. Dr. Osorio request Dr. Hermosillo to be consult however he will take calls and the patient overnight I spoke with the patient's family and updated them on the plan of care. Patient and family are comfortable agreeable current plan of care. Impression Primary Impression: Rectal bleeding Additional Impression: Hemorrhagic shock Disposition: ADMITTED INPATIENT Condition: Improved Departure-Patient Inst. Referrals: JOSE ALEJANDRO GRANT MD (PCP/Family) Primary Care Physician CONCEPCION JAY DO Feb 01, 2022 19:17
[2022-02-01] MEDS ORDERED: NS IV 500 ML 500 ML ONE (19:28)
[2022-02-01 19:38] LABS: BASOPHILS # (AUTO) 0.1 10^3/uL (0.0-0.1); BASOPHILS % (AUTO) 1 % (0-10); EOSINOPHILS # (AUTO) 0.2 10^3/uL (0.0-0.3); EOSINOPHILS % (AUTO) 3 % (0-10); HEMATOCRIT 31 % (40-54); HEMOGLOBIN 11.1 g/dL (13.3-17.7); LYMPHOCYTES # (AUTO) 3.2 10^3/uL (1.0-4.0); LYMPHOCYTES % (AUTO) 36 % (12-44); MEAN CORPUSCULAR HEMOGLOBIN 35 pg (25-34); MEAN CORPUSCULAR HGB CONC 35 g/dL (32-36); MEAN CORPUSCULAR VOLUME 100 fL (80-99); MEAN PLATELET VOLUME 10.7 fL (9.0-12.2); MONOCYTES # (AUTO) 0.9 10^3/uL (0.0-1.0); MONOCYTES % (AUTO) 10 % (0-12); NEUTROPHILS # (AUTO) 4.4 10^3/uL (1.8-7.8); NEUTROPHILS % (AUTO) 50 % (42-75); PLATELET COUNT 151 10^3/uL (130-400)
[2022-02-01 19:57] LABS: POTASSIUM 3.1 MMOL/L (3.6-5.0)
[2022-02-01 19:58] LABS: CALCIUM 7.1 MG/DL (8.5-10.1)
[2022-02-01 20:01] LABS: BILIRUBIN,TOTAL 0.3 MG/DL (0.1-1.0)
[2022-02-01 20:03] LABS: CREATININE SERUM 1.26 MG/DL (0.60-1.30)
--- NOTE | 2022-02-01 20:25 | Diagnostic Imaging Report ---
INDICATION: Bloody stools, recent surgery. COMPARISON: None. FINDINGS: Supine and upright views the abdomen demonstrate nonobstructive small bowel gas pattern. Mild amount of air and stool are seen scattered throughout the colon. No abnormal air-fluid levels or large collection of free intraperitoneal air is seen. No abnormal extraosseous calcifications or radiopaque foreign bodies are identified. Bony structures are age-appropriate. IMPRESSION: 1. Nonobstructive small bowel gas pattern. Dictated by: Dictated on workstation # [id number]
[2022-02-01 21:21] VITALS: BP 144/84
[2022-02-01 21:40] VITALS: BP 144/84
[2022-02-01] MEDS ORDERED: ONDANSETRON 4 MG/2 ML (SDV) Z0FRAN IV PRN (21:45)
[2022-02-01] MEDS ORDERED: RT-ALBUTEROL SULF 2.5 MG/3 ML PRE-MIX VIAL INH PRN (22:00)
[2022-02-01] MEDS: NS W/KCL 20 MEQ/L 1,000 ML IV SCH (22:03)
[2022-02-01] MEDS ORDERED: morphine INJ 4 MG/ML 1 ML (VIAL/SYRINGE) IV ONE (22:45)
--- NOTE | 2022-02-01 22:55 | Tele-ICU Consult ---
History of Present Illness History of Present Illness Date Seen by Provider: Feb 01, 2022 Time Seen by Provider: 20:00 Date of Admission History of Present Illness Remotely managed patient through TELEICU 71 year old male with recent colonscopy with polypectomy presented to ED today for sudden onset of rectal bleeding. His initial bloo pressure was in 60s systolic with some repsone to fluids. He was given 2 u PRC in ED with improvement in BP. There is concern that he is still having some rectal bleeding. Gen surg is consulted Vitals reviewed Labs reviewed Examination through one-way in-room camera - comfortable in appearance. Assessment/Plan: Acute GI bleed - following polypectomy - resolving. GI consulted - defer management. Gen surg consulted as no GI on service Acute blood loss anemia - s/p 2 u PRBC in ED. continue to monitor with serial cbc Abdominal pain - ordered morphine Discussed with RN at bedside Allergies and Home Medications Allergies Coded Allergies: No Known Drug Allergies (Unverified , 01/07/17) Home Medications Albuterol Sulfate 1 Puff Puff, 2 PUFF IH Q4H PRN for SHORTNESS OF BREATH, (Reported) 1 PUFF = 90 MCG Levothyroxine Sodium 137 Mcg Tablet, 137 MCG PO DAILY, (Reported) Metoprolol Tartrate 25 Mg Tablet, 25 MG PO BID, (Reported) Past Medical/Social/Family Hx Patient Social History Tobacco Use?: Yes Tobacco type used: Cigarettes Smoking Status: Current Everyday Smoker Smokeless Tobacco Frequency: Former User Use of E-Cig and/or Vaping dev: No Substance use?: No Alcohol Use?: Yes Alcohol type: Hard Liquor Alcohol Frequency: Once in a while Pt stated abuse/neglect: No Immunizations Up To Date Influenza Vaccine Up-to-Date: No; Not Current First/Initial COVID19 Vaccinat: NO Second COVID19 Vaccination Suhas: NO Tetanus Booster (TDap): More Than 5 Years Hepatitis A: No Hepatitis B: No TB Skin Test: None Current Status Advance Directives: No Communicates: Verbally Primary Language: Ivorian Preferred Spoken Language: Ivorian Is interpretation needed?: No Implanted or Applied Medical D: Stents Review of Systems Constitutional: see HPI EENTM: see HPI Respiratory: see HPI Cardiovascular: see HPI Gastrointestinal: see HPI Genitourinary: see HPI Musculoskeletal: see HPI Skin: see HPI Psychiatric/Neurological: See HPI Focused Exam Height, Weight, BMI Height: 5'11.00" Weight: 222lbs. 0.0oz. 100.781226hw; 30.37 BMI Method:Stated Exam Exam Patient acknowledged, consented, and participated in this virtual visit which wa s conducted using real time audio/video Vital Signs Date Time Temp Pulse Resp B/P (MAP) Pulse Ox O2 Delivery O2 Flow Rate FiO2 02/01/22 22:18 100 Room Air 02/01/22 21:40 36.4 63 100 21 02/01/22 21:21 36.4 63 15 144/84 (104) 100 Room Air 02/01/22 21:21 36.4 63 15 144/84 (104) 100 Room Air 02/01/22 21:14 70 02/01/22 20:59 34.7 61 16 108/79 100 Room Air 02/01/22 20:56 34.7 103 34.7 02/01/22 20:26 34.6 70 34.7 34.7 02/01/22 19:38 62 114/70 (85) 94 Room Air 02/01/22 19:06 34.8 81 16 105/99 (101) 94 Room Air Height & Weight Height: 5'11.00" Weight: 222lbs. 0.0oz. 100.476325pq; 30.37 BMI Method:Stated General Appearance: No Apparent Distress, WD/WN Capillary Refill: Less Than 3 Seconds Results Lab Laboratory Tests 02/01/22 19:25 Assessment/Plan Assessment/Plan Please see above MICHAEL OVIEDO MD Feb 01, 2022 22:55
[2022-02-02] MEDS ORDERED: NS IV 500 ML 500 ML IV PRN (01:00)
[2022-02-02] MEDS ORDERED: NS IV 500 ML 500 ML ONE (01:10)
[2022-02-02 01:20] LABS: HEMOGLOBIN 11.9 g/dL (13.3-17.7)
[2022-02-02 01:21] LABS: MEAN PLATELET VOLUME 10.3 fL (9.0-12.2); WHITE BLOOD COUNT 11.9 10^3/uL (4.3-11.0)
[2022-02-02] MEDS: NS IV 500 ML 500 ML IV SCH ×2 (01:21→13:31)
[2022-02-02 05:34] LABS: BASOPHILS # (AUTO) 0.1 10^3/uL (0.0-0.1); BASOPHILS % (AUTO) 1 % (0-10); EOSINOPHILS # (AUTO) 0.2 10^3/uL (0.0-0.3); EOSINOPHILS % (AUTO) 2 % (0-10); HEMATOCRIT 34 % (40-54); HEMOGLOBIN 11.6 g/dL (13.3-17.7); LYMPHOCYTES # (AUTO) 2.5 10^3/uL (1.0-4.0); LYMPHOCYTES % (AUTO) 27 % (12-44); MEAN CORPUSCULAR HEMOGLOBIN 34 pg (25-34); MEAN CORPUSCULAR HGB CONC 34 g/dL (32-36); MEAN CORPUSCULAR VOLUME 98 fL (80-99); MEAN PLATELET VOLUME 10.6 fL (9.0-12.2); MONOCYTES # (AUTO) 0.7 10^3/uL (0.0-1.0); MONOCYTES % (AUTO) 8 % (0-12); NEUTROPHILS # (AUTO) 5.7 10^3/uL (1.8-7.8); NEUTROPHILS % (AUTO) 62 % (42-75); PLATELET COUNT 124 10^3/uL (130-400); WHITE BLOOD COUNT 9.2 10^3/uL (4.3-11.0)
[2022-02-02 05:48] LABS: ALBUMIN 3.1 GM/DL (3.2-4.5)
[2022-02-02 05:49] LABS: POTASSIUM 4.2 MMOL/L (3.6-5.0)
[2022-02-02 05:50] LABS: CALCIUM 7.6 MG/DL (8.5-10.1)
[2022-02-02 05:51] LABS: TOTAL PROTEIN 5.3 GM/DL (6.4-8.2)
[2022-02-02 05:53] LABS: BILIRUBIN,TOTAL 0.8 MG/DL (0.1-1.0)
[2022-02-02 05:54] LABS: PHOSPHORUS 2.7 MG/DL (2.3-4.7)
[2022-02-02 05:55] LABS: CREATININE SERUM 1.01 MG/DL (0.60-1.30)
[2022-02-02 05:57] LABS: MAGNESIUM 1.7 MG/DL (1.6-2.4)
[2022-02-02] MEDS: MAGNESIUM 1 GM/100 ML IVPB 100 ML IV SCH (06:00)
[2022-02-02] MEDS: POTASSIUM CL 10MEQ/50ML IVPB 50 ML IV SCH (06:00)
[2022-02-02] MEDS: KCL 20 MEQ TAB (K-DUR) PO SCH (06:00)
[2022-02-02] MEDS: PANTOPRAZOLE 40 MG (PROTONIX) VIAL IV SCH ×2 (08:20→21:54)
--- NOTE | 2022-02-02 09:01 | History & Physical-Hospitalist ---
History of Present Illness HPI/Chief Complaint Pt is a 71yoCM with a PMH of CAD s/p CABG who presented to the ER due to rectal bleeding. He was out golfing and went to the bathroom and had a large bloody stool. He describes it as losing a "bucket of blood" in the toilet. He then went and sat in the clubhouse for a while. He then went to bring his golfcart back and after driving away he got off the golf cart and nearly passed out and had another large bloody BM. He was unable to get off the ground for roughly an hour following this and eventually crawled up to his golf cart and called for help from the golf cart staff. When they arrived he had another large bloody stool and then called EMS. EMS reports he was found in a large amount of blood and had very low BP (note reports SBP of 60s, patient reports in the 40s). He was fluid resuscitated in the ER and given 2 units of pRBCs. He reported to the ER about having some abd pain and taking a nitro pill but he did not disclose this to me. He reports feeling much better this morning. Of note he did have 2 colonoscopies in the last 2 months where he had 20+ polyps removed, the most recent colonoscopy was on 01/27. Source: patient Date Seen 02/02/22 Time Seen by a Provider: 08:35 Attending Physician Job Daniels MD PCP Admitting Physician: Marleny Hough MD Attending Physician: Marleny Hough MD Referring Physician Date of Admission Feb 01, 2022 at 20:25 Home Medications & Allergies Home Medications Reviewed patient Home Medication Reconciliation performed by pharmacy medication reconciliations roofing technician and/or nursing. Patients Allergies have been reviewed. Allergies Allergies Coded Allergies No Known Drug Allergies (Cdrkfhjnyf74/5/17) Past Aikhwww-Bvffxx-Ktnqgf Hx Patient Social History Tobacco Use?: Yes Tobacco type used: Cigarettes Smoking Status: Current Everyday Smoker Smokeless Tobacco Frequency: Former User Use of E-Cig and/or Vaping dev: No Substance use?: No Alcohol Use?: Yes Alcohol type: Hard Liquor Alcohol Frequency: Once in a while Pt feels they are or have been: No Immunizations Up To Date First/Initial COVID19 Vaccinat: NO Second COVID19 Vaccination Suhas: NO Tetanus Booster (TDap): More Than 5 Years Hepatitis A: No Hepatitis B: No Seasonal Allergies Seasonal Allergies: Yes Current Status Advance Directives: No Communicates: Verbally Primary Language: Japanese Preferred Spoken Language: Japanese Is interpretation needed?: No Implanted or Applied Medical D: Stents Past Medical History Surgeries: CABG COPD Coronary Artery Disease, Hypertension, Irregular Heartbeat Sexually Transmitted Disease: No HIV/AIDS: No Arthritis, Chronic Back Pain Hypothyroidsim Tinnitis Loss of Vision: Bilateral Hearing Impairment: Denies Blood Disorders: No Adverse Reaction/Blood Tranf: No Family Medical History Reviewed Nursing Family Hx No Pertinent Family Hx Review of Systems Constitutional: No chills, No fever EENTM: no symptoms reported Respiratory: dyspnea on exertion, short of breath Cardiovascular: No chest pain, No edema; Hx of Intervention, syncope (near syncope) Gastrointestinal: see HPI Genitourinary: no symptoms reported Musculoskeletal: no symptoms reported Skin: no symptoms reported Psychiatric/Neurological: No Symptoms Reported Physical Exam Physical Exam Vital Signs Vital Signs - First Documented 02/01/22 02/01/22 19:06 21:40 Temp 34.8 Pulse 81 Resp 16 B/P (MAP) 105/99 (101) Pulse Ox 94 O2 Delivery Room Air FiO2 21 Capillary Refill : Less Than 3 Seconds Height, Weight, BMI Height: 5'11.00" Weight: 222lbs. 0.0oz. 100.256473ep; 30.83 BMI Method:Stated General Appearance: No Apparent Distress, WD/WN HEENT: PERRL/EOMI, Moist Mucous Membranes; No Scleral Icterus (L), No Scleral Icterus (R) Neck: Normal Inspection, Supple Respiratory: Lungs Clear, No Accessory Muscle Use, No Respiratory Distress Cardiovascular: Regular Rate, Rhythm, No Murmur Gastrointestinal: Normal Bowel Sounds, Non Tender, Soft; No Distended, No Guarding, No Rebound Extremity: Normal Capillary Refill, No Calf Tenderness, No Pedal Edema Neurologic/Psychiatric: Alert, Oriented x3, Normal Mood/Affect Skin: Normal Color, Warm/Dry Results Results/Procedures Labs Laboratory Tests 02/01/22 19:25 02/02/22 01:14 02/02/22 05:02 Patient resulted labs reviewed. Imaging: Reviewed Imaging Report Imaging [facility] [place] NAME: [facility]NSON [facility] REC#: [id number] PT STATUS: ADM IN : 1950 PHYSICIAN: CONCEPCION JAY DO ADMIT DATE: 02/01/22/ICU Signed Date of Exam:02/01/22 ABDOMEN, FLAT & UPRIGHT/DECUB INDICATION: Bloody stools, recent surgery. COMPARISON: None. FINDINGS: Supine and upright views the abdomen demonstrate nonobstructive small bowel gas pattern. Mild amount of air and stool are seen scattered throughout the colon. No abnormal air-fluid levels or large collection of free intraperitoneal air is seen. No abnormal extraosseous calcifications or radiopaque foreign bodies are identified. Bony structures are age-appropriate. IMPRESSION: 1. Nonobstructive small bowel gas pattern. Dictated by: Dictated on workstation # [id number] Dict: 02/01/222011 Trans: 02/01/222223 PJE [id number] Interpreted by: LUCIO MAYER MD Electronically signed by: LUCIO MAYER MD 02/01/224 Assessment/Plan Admission Diagnosis GI Bleed Admission Status: Inpatient Order (span 2 midnights) Reason for Inpatient Admission: see below Assessment and Plan GI Bleed Hemorrhagic shock Hgb stable at 11 but received 2 units pRBCs per patient and nurse report BP improved but still on softer side Surgery consulted, appreciate recs Has been off anticoagulation at home for a few months, continue to hold NPO Check Hgb in AM or if another blood bowel movement HTN CAD s/p CABG HLD Hold home meds for now COPD MAT protocol Continue home inhalers DVT ppx: Diagnosis/Problems Diagnosis/Problems (1) CAD (coronary artery disease) (2) Essential (primary) hypertension (3) HLD (hyperlipidemia) (4) COPD (chronic obstructive pulmonary disease) (5) Hemorrhagic shock Status: Acute (6) Rectal bleeding Status: Acute (7) History of colonic polyps ISABEL CASTAÑEDA MD Feb 02, 2022 09:01
--- NOTE | 2022-02-02 12:05 | Tele-ICU Progress Note ---
Subjective Date Seen by a Provider: Feb 02, 2022 Time Seen by a Provider: 12:01 Subjective/Events-last exam (Tele-ICU Physician , Progress Note ) Service provided via interactive audio and video telecommunications E-CARE system to a patient admitted to ICU bed in [facility]. Available chart/ vitals / labs / Images reviewed Video assessment done using teleICU camera, rest of exam as per RN Discussed with RN Events overnight : Afebrile hemodynamically stable Respiratory - I/O = Drips: ns 75 with K Pressors- no Consultants: sx Hospital course: (02/01) 71/M admitted with lower GI bleed , hemorragic shock , 2 units pRBCs A/P hemorragic shock with GIB - BP imperoved with transfusions ABLA - rectal bleeding - s/p 2 colonoscopies in the last 2 months where he had 20+ polyps removed, the most recent colonoscopy was on 01/27. 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 Discussed with RN to reach out if any questions or concerns A total of 25 minutes of critical care time was devoted to this patient today, required to treat and/or prevent further deterioration of critical care condition ( as above ) . I am remotely monitoring this patient from another state. I am unable to do the bedside exam, and history/physical and pertinent information is taken from other notes in the computer and bedside staff. Sepsis Event Evaluation Height, Weight, BMI Height: 5'11.00" Weight: 222lbs. 0.0oz. 100.374198mm; 30.83 BMI Method:Stated Exam Exam Patient acknowledged, consented, and participated in this virtual visit which wa s conducted using real time audio/video Vital Signs Date Time Temp Pulse Resp B/P (MAP) Pulse Ox O2 Delivery O2 Flow Rate FiO2 02/02/22 11:00 57 25 97/59 (72) 95 Room Air 02/02/22 10:00 50 21 95/65 (75) 89 Room Air 02/02/22 09:00 55 14 95/59 (71) 93 Room Air 02/02/22 08:00 96 Room Air 02/02/22 08:00 55 15 118/73 (88) 96 Room Air 02/02/22 08:00 37.0 02/02/22 07:09 49 02/02/22 07:00 61 17 76/54 (61) 95 Room Air 02/02/22 06:00 86 20 86/55 (65) 95 Room Air 02/02/22 05:00 59 10 105/58 (71) 95 Room Air 02/02/22 04:00 55 8 96/61 (72) 97 Room Air 02/02/22 04:00 96 Room Air 02/02/22 03:15 57 10 95/51 (66) 97 Room Air 02/02/22 02:45 56 15 83/56 (65) 96 Room Air 02/02/22 01:30 56 13 87/54 (65) 98 Room Air 02/02/22 01:00 59 02/02/22 00:09 60 13 85/58 (67) 94 Room Air 02/01/22 23:59 95 Room Air 02/01/22 23:07 77 16 117/64 (73) 100 Room Air 02/01/22 22:45 61 8 133/71 (90) 100 Room Air 02/01/22 22:30 65 8 143/76 (96) 100 Room Air 02/01/22 22:18 100 Room Air 02/01/22 22:15 66 14 142/77 (110) 99 Room Air 02/01/22 22:00 65 12 132/72 (102) 100 Room Air 02/01/22 21:45 65 12 134/76 (96) 99 Room Air 02/01/22 21:40 36.4 63 100 21 02/01/22 21:30 65 15 126/62 (98) 100 Room Air 02/01/22 21:25 96 Room Air 02/01/22 21:21 36.4 63 15 144/84 (104) 100 Room Air 02/01/22 21:21 36.4 63 15 144/84 (104) 100 Room Air 02/01/22 21:14 70 02/01/22 20:59 34.7 61 16 108/79 100 Room Air 02/01/22 20:56 34.7 103 34.7 02/01/22 20:26 34.6 70 34.7 34.7 02/01/22 19:38 62 114/70 (85) 94 Room Air 02/01/22 19:06 34.8 81 16 105/99 (101) 94 Room Air I & O 02/02/22 07:00 Intake Total 4500 ml Output Total 0 ml Balance 4500 ml Height & Weight Height: 5'11.00" Weight: 222lbs. 0.0oz. 100.965486xs; 30.83 BMI Method:Stated General Appearance: No Apparent Distress, WD/WN HEENT: PERRL/EOMI, Moist Mucous Membranes; No Scleral Icterus (L), No Scleral Icterus (R) Neck: Normal Inspection, Supple Respiratory: Lungs Clear, No Accessory Muscle Use, No Respiratory Distress Cardiovascular: Regular Rate, Rhythm, No Murmur Capillary Refill: Less Than 3 Seconds Extremity: Normal Capillary Refill, No Calf Tenderness, No Pedal Edema Neurologic/Psychiatric: Alert, Oriented x3, Normal Mood/Affect Skin: Normal Color, Warm/Dry Results Lab Laboratory Tests 02/01/22 19:25 02/02/22 01:14 02/02/22 05:02 Assessment/Plan Assessment/Plan 1 HALEIGH ZELAYA MD Feb 02, 2022 12:05
[2022-02-02] MEDS: NS W/KCL 20 MEQ/L 1,000 ML IV SCH (13:31)
--- NOTE | 2022-02-02 15:44 | Consultation - Surgery ---
History of Present Illness History of Present Illness Patient Consulted On(joan/time) 02/02/22 15:38 Date Seen by Provider: Feb 02, 2022 Time Seen by Provider: 08:32 History of Present Illness Patient 71 year old male had recent colonoscopy c biopsies. Was doing fine and was playing golf yesterday began having multiple bloody bowel movements. He has chronic abdominal pain, which this is unchanged. Patient got light headed and couldn't get off the ground after putting cart away. Was there about an hour. Thought maybe cardiac so took a nitro pill he states. Blood pressure was in the 60's systoslic. Patient received fluid and 2 units prbc. Things have improved this morning he states. Denies n/v fever sweats chills shortness of breath or chest pain. Allergies and Home Medications Allergies Coded Allergies: No Known Drug Allergies (Unverified , 01/07/17) Patient Home Medication List Home Medication List Reviewed: Yes No Active Prescriptions or Reported Meds Past [id number]-[id number] Hx Patient Social History Smoking Status: Current Everyday Smoker Type Used: Cigarettes 2nd Hand Smoke Exposure: No Recent Hopitalizations: No Alcohol Use?: Yes Have you traveled recently?: No Immunizations Up To Date Tetanus Booster (TDap): Unknown Seasonal Allergies Seasonal Allergies: Yes Surgeries History of Surgeries: Yes (CARDIAC BYPASS 2011, CARDIAC STENTS PRIOR TO BYPASS) Surgeries: CABG Respiratory History of Respiratory Disorde: Yes Respiratory Disorders: COPD Cardiovascular History of Cardiac Disorders: Yes (STENTS THEN BYPASS) Cardiac Disorders: Coronary Artery Disease, Hypertension, Irregular Heartbeat Neurological History of Neurological Disord: No Reproductive System Hx Reproductive Disorders: No Sexually Transmitted Disease: No HIV/AIDS: No Genitourinary History of Genitourinary Disor: No Gastrointestinal History of Gastrointestinal Di: Yes (WT LOSS) Musculoskeletal History of Musculoskeletal Dis: Yes Musculoskeletal Disorders: Arthritis, Chronic Back Pain Endocrine History of Endocrine Disorders: Yes Endocrine Disorders: Hypothyroidsim HEENT History of HEENT Disorders: Yes HEENT Disorders: Tinnitis Loss of Vision: Bilateral Hearing Impairment: Denies Cancer History of Cancer: No Psychosocial History of Psychiatric Problem: No Integumentary History of Skin or Integumenta: No Blood Transfusions History of Blood Disorders: No Adverse Reaction to a Blood Tr: No Reviewed Nursing Assessment Reviewed/Agree w Nursing PMH: Yes Family Medical History Significant Family History: No Pertinent Family Hx Review of Systems-General Constitutional: No chills; weakness EENTM: No blurred vision, No double vision Respiratory: No cough, No dyspnea on exertion Cardiovascular: No chest pain, No palpitations Gastrointestinal: abdominal pain, melena; No nausea, No vomiting Genitourinary: No decreased output, No discharge Musculoskeletal: No back pain, No joint pain Skin: No change in color, No change in hair/nails Psychiatric/Neurological: Denies Anxiety, Denies Depressed, Denies Emotional Problems All Other Systems Reviewed Negative Unless Noted: Yes (Negative excepted noted.) Physical Exam-General Problems Physical Exam Vital Signs Vital Signs - First Documented 02/01/22 02/01/22 19:06 21:40 Temp 34.8 Pulse 81 Resp 16 B/P (MAP) 105/99 (101) Pulse Ox 94 O2 Delivery Room Air FiO2 21 Capillary Refill : Less Than 3 Seconds General Appearance: WD/WN, no apparent distress HEENT: PERRL/EOMI, normal ENT inspection Neck: non-tender, supple Respiratory: chest non-tender, no respiratory distress, no accessory muscle use Cardiovascular: regular rate, rhythm Gastrointestinal: non tender, soft Back: normal inspection, no CVA tenderness Extremities: non-tender Neurologic/Psychiatric: alert, normal mood/affect, oriented x 3 Skin: normal color, warm/dry Lymphatic: no adenopathy Data Review Labs Laboratory Tests 02/01/22 19:25: White Blood Count 9.0, Red Blood Count 3.15L, Hemoglobin 11.1L, Hematocrit 31L, Mean Corpuscular Volume 100H, Mean Corpuscular Hemoglobin 35H, Mean Corpuscular Hemoglobin Concent 35, Red Cell Distribution Width 14.1, Platelet Count 151, Mean Platelet Volume 10.7, Immature Granulocyte % (Auto) 1, Neutrophils (%) (Auto) 50, Lymphocytes (%) (Auto) 36, Monocytes (%) (Auto) 10, Eosinophils (%) (Auto) 3, Basophils (%) (Auto) 1, Neutrophils # (Auto) 4.4, Lymphocytes # (Auto) 3.2, Monocytes # (Auto) 0.9, Eosinophils # (Auto) 0.2, Basophils # (Auto) 0.1, Immature Granulocyte # (Auto) 0.1, Sodium Level 135, Potassium Level 3.1L, Chloride Level 113H, Carbon Dioxide Level 15L, Anion Gap 7, Blood Urea Nitrogen 12, Creatinine 1.26, Estimat Glomerular Filtration Rate 60, BUN/Creatinine Ratio 10, Glucose Level 95, Calcium Level 7.1L, Corrected Calcium 7.9L, Total Bilirubin 0.3, Aspartate Amino Transf (AST/SGOT) 13, Alanine Aminotransferase (ALT/SGPT) 9, Alkaline Phosphatase 35L, Total Protein 5.0L, Albumin 3.0L 02/02/22 01:14: White Blood Count 11.9H, Red Blood Count 3.62L, Hemoglobin 11.9L, Hematocrit 35L , Mean Corpuscular Volume 98, Mean Corpuscular Hemoglobin 33, Mean Corpuscular Hemoglobin Concent 34, Red Cell Distribution Width 18.5H, Platelet Count 139, Mean Platelet Volume 10.3, Percent Immature Platelet Fraction 8.1H 02/02/22 05:02: White Blood Count 9.2, Red Blood Count 3.46L, Hemoglobin 11.6L, Hematocrit 34L, Mean Corpuscular Volume 98, Mean Corpuscular Hemoglobin 34, Mean Corpuscular Hemoglobin Concent 34, Red Cell Distribution Width 18.8H, Platelet Count 124L, Mean Platelet Volume 10.6, Immature Granulocyte % (Auto) 1, Neutrophils (%) (Auto) 62, Lymphocytes (%) (Auto) 27, Monocytes (%) (Auto) 8, Eosinophils (%) (Auto) 2, Basophils (%) (Auto) 1, Neutrophils # (Auto) 5.7, Lymphocytes # (Auto) 2.5, Monocytes # (Auto) 0.7, Eosinophils # (Auto) 0.2, Basophils # (Auto) 0.1, Immature Granulocyte # (Auto) 0.1, Sodium Level 136, Potassium Level 4.2, Chloride Level 110H, Carbon Dioxide Level 19L, Anion Gap 7, Blood Urea Nitrogen 10, Creatinine 1.01, Estimat Glomerular Filtration Rate 79, BUN/Creatinine Ratio 10, Glucose Level 87, Calcium Level 7.6L, Corrected Calcium 8.3L, Total Bilirubin 0.8, Aspartate Amino Transf (AST/SGOT) 16, Alanine Aminotransferase (ALT/SGPT) 10, Alkaline Phosphatase 37L, Total Protein 5.3L, Albumin 3.1L, Percent Immature Platelet Fraction 7.0, Phosphorus Level 2.7, Magnesium Level 1.7 02/02/22 08:53: Lab Scanned Report Transfusion Reaction Form 02/02/22 12:49: Lab Scanned Report Transfusion Reaction Form Assessment/Plan Assessment/Plan Assessment/Plan lower gi bleed hypotension s/p colonoscopy c polypectomies patient transfused, follow hgb and transfuse as needed npo iv fluids suspect polypectomy site bleed-conservative measures, if continues, may need to repeat colonoscopy KALA SCHMITT DO Feb 02, 2022 15:44
[2022-02-03] MEDS: NS W/KCL 20 MEQ/L 1,000 ML IV SCH (02:55)
[2022-02-03 05:26] LABS: BASOPHILS # (AUTO) 0.1 10^3/uL (0.0-0.1); BASOPHILS % (AUTO) 1 % (0-10); EOSINOPHILS # (AUTO) 0.3 10^3/uL (0.0-0.3); EOSINOPHILS % (AUTO) 3 % (0-10); HEMATOCRIT 38 % (40-54); HEMOGLOBIN 12.8 g/dL (13.3-17.7); LYMPHOCYTES # (AUTO) 3.3 10^3/uL (1.0-4.0); LYMPHOCYTES % (AUTO) 40 % (12-44); MEAN CORPUSCULAR HEMOGLOBIN 33 pg (25-34); MEAN CORPUSCULAR HGB CONC 33 g/dL (32-36); MEAN CORPUSCULAR VOLUME 99 fL (80-99); MEAN PLATELET VOLUME 10.7 fL (9.0-12.2); MONOCYTES # (AUTO) 0.7 10^3/uL (0.0-1.0); MONOCYTES % (AUTO) 8 % (0-12); NEUTROPHILS # (AUTO) 3.9 10^3/uL (1.8-7.8); NEUTROPHILS % (AUTO) 47 % (42-75); PLATELET COUNT 142 10^3/uL (130-400); WHITE BLOOD COUNT 8.2 10^3/uL (4.3-11.0)
[2022-02-03 05:45] LABS: ALBUMIN 3.6 GM/DL (3.2-4.5); BILIRUBIN,TOTAL 0.9 MG/DL (0.1-1.0); CALCIUM 8.6 MG/DL (8.5-10.1); CREATININE SERUM 1.1 MG/DL (0.60-1.30); MAGNESIUM 1.9 MG/DL (1.6-2.4); PHOSPHORUS 2.5 MG/DL (2.3-4.7); POTASSIUM 4.2 MMOL/L (3.6-5.0); TOTAL PROTEIN 6.1 GM/DL (6.4-8.2)
[2022-02-03] MEDS: POTASSIUM CL 10MEQ/50ML IVPB 50 ML IV SCH (06:00)
[2022-02-03] MEDS: KCL 20 MEQ TAB (K-DUR) PO SCH (06:00)
[2022-02-03] MEDS: MAGNESIUM 1 GM/100 ML IVPB 100 ML IV SCH (06:00)
--- NOTE | 2022-02-03 07:05 | Progress Note - Surgery ---
[facility] 02[facility] 0705: Subjective Date Seen by a Provider: Feb 03, 2022 Subjective/Events-last exam Pt is describing unchanged abdominal pain in a band across his lower abdomen and states he is hungry. He is able to walk to the toilet and is urinating without issue. He has not had a BM and denies nausea or vomiting. Review of Systems General: No Chills, No Night Sweats; Appetite HEENT: No Head Aches Pulmonary: No Dyspnea Gastrointestinal: Abdominal Pain Objective Exam Vital Signs Date Time Temp Pulse Resp B/P (MAP) Pulse Ox O2 Delivery O2 Flow Rate FiO2 02/03/22 06:00 52 9 118/72 (87) 93 Room Air 02/03/22 05:00 64 136/99 (111) 94 Room Air 02/03/22 04:00 95 Room Air 02/03/22 04:00 55 10 118/72 (87) 92 Room Air 02/03/22 03:00 47 11 94/60 (74) 93 Room Air 02/03/22 02:00 49 13 102/57 (85) 93 Room Air 02/03/22 01:00 54 02/03/22 01:00 54 19 95/57 (75) 91 Room Air 02/03/22 00:00 51 12 96/57 (70) 92 Room Air 02/02/22 23:59 94 Room Air 02/02/22 23:00 63 24 97/61 (82) 92 Room Air 02/02/22 22:00 49 13 113/56 (72) 92 Room Air 02/02/22 21:00 52 10 90/72 (75) 92 Room Air 02/02/22 20:00 36.4 02/02/22 20:00 64 16 122/63 (86) 93 Room Air 02/02/22 20:00 95 Room Air 02/02/22 19:00 48 8 103/59 (73) 94 Room Air 02/02/22 19:00 48 02/02/22 18:00 56 17 106/66 (79) 95 Room Air 02/02/22 17:00 46 40 98/52 (67) 94 Room Air 02/02/22 16:00 36.3 02/02/22 16:00 48 13 99/53 (68) 93 Room Air 02/02/22 15:04 57 20 108/56 (73) 97 Room Air 02/02/22 15:03 96 Room Air 02/02/22 15:00 51 27 108/56 (73) 94 Room Air 02/02/22 14:00 58 10 115/66 (82) 92 Room Air 02/02/22 13:00 55 13 115/72 (86) 95 Room Air 02/02/22 12:56 56 02/02/22 12:00 96 Room Air 02/02/22 12:00 36.8 02/02/22 12:00 56 18 104/67 (79) 94 Room Air 02/02/22 11:00 57 25 97/59 (72) 95 Room Air 02/02/22 10:00 50 21 95/65 (75) 89 Room Air 02/02/22 09:00 55 14 95/59 (71) 93 Room Air 02/02/22 08:00 96 Room Air 02/02/22 08:00 55 15 118/73 (88) 96 Room Air 02/02/22 08:00 37.0 02/02/22 07:09 49 I & O 02/03/22 07:00 Intake Total 3000 ml Output Total 1900 ml Balance 1100 ml Capillary Refill : Less Than 3 Seconds General Appearance: No Apparent Distress, WD/WN HEENT: PERRL/EOMI, Moist Mucous Membranes; No Scleral Icterus (L), No Scleral Icterus (R) Neck: Normal Inspection Respiratory: Lungs Clear, No Accessory Muscle Use, No Respiratory Distress Cardiovascular: Regular Rate, Rhythm, No Murmur Gastrointestinal: soft, guarding, tenderness (Diffusely tender to palpation) Extremity: Normal Capillary Refill, No Pedal Edema Neurologic/Psychiatric: Alert, Oriented x3, Normal Mood/Affect Skin: Normal Color, Warm/Dry Results Lab Laboratory Tests 02/02/22 08:53: Lab Scanned Report Transfusion Reaction Form 02/02/22 12:49: Lab Scanned Report Transfusion Reaction Form 02/03/22 05:06: White Blood Count 8.2, Red Blood Count 3.90L, Hemoglobin 12.8L, Hematocrit 38L, Mean Corpuscular Volume 99, Mean Corpuscular Hemoglobin 33, Mean Corpuscular Hemoglobin Concent 33, Red Cell Distribution Width 18.5H, Platelet Count 142, Mean Platelet Volume 10.7, Immature Granulocyte % (Auto) 0, Neutrophils (%) (Auto) 47, Lymphocytes (%) (Auto) 40, Monocytes (%) (Auto) 8, Eosinophils (%) (Auto) 3, Basophils (%) (Auto) 1, Neutrophils # (Auto) 3.9, Lymphocytes # (Auto) 3.3, Monocytes # (Auto) 0.7, Eosinophils # (Auto) 0.3, Basophils # (Auto) 0.1, Immature Granulocyte # (Auto) 0.0, Sodium Level 137, Potassium Level 4.2, Chloride Level 109H, Carbon Dioxide Level 18L, Anion Gap 10, Blood Urea Nitrogen 10, Creatinine 1.10, Estimat Glomerular Filtration Rate 71, BUN/Creatinine Ratio 9, Glucose Level 87, Calcium Level 8.6, Corrected Calcium 8.9, Phosphorus Level 2.5, Magnesium Level 1.9, Total Bilirubin 0.9, Aspartate Amino Transf (AST/SGOT) 19, Alanine Aminotransferase (ALT/SGPT) 11, Alkaline Phosphatase 41, Total Protein 6.1L, Albumin 3.6 Microbiology 02/01/22 MRSA Screen - Final, Complete MRSA not isolated Assessment/Plan Assessment/Plan Assessment/Plan lower gi bleed hypotension-improved s/p colonoscopy c polypectomies on 01/27/2022 patient transfused, follow hgb and transfuse as needed npo iv fluids suspect polypectomy site bleed-conservative measures, if continues, may need to repeat colonoscopy KALA HERMOSILLO DO 02/03/22 1550: Subjective Subjective/Events-last exam Patient has a little blood passed today. Same abominal pain acrossed abdomen he always has. No new complaints. Denies n/v fever sweats chills shortness of breath or chest pain. Objective Exam General Appearance: No Apparent Distress, WD/WN HEENT: Normal ENT Inspection Neck: Full Range of Motion, Normal Inspection, Non Tender Respiratory: Chest Non Tender, No Accessory Muscle Use, No Respiratory Distress Cardiovascular: Regular Rate, Rhythm, No JVD Gastrointestinal: non tender, soft; No guarding; tenderness (minimal across abdomen in band distribution, unchanged) Extremity: Normal Capillary Refill, Non Tender Neurologic/Psychiatric: Alert, Oriented x3 Skin: Normal Color, Warm/Dry Lymphatic: No Adenopathy Assessment/Plan Assessment/Plan Assessment/Plan lower gi bleed hypotension-improved s/p colonoscopy c polypectomies on 01/27/2022 patient transfused, follow hgb and transfuse as needed, hgb stable advance to clears iv fluids suspect polypectomy site bleed-conservative measures, if continues, may need to repeat colonoscopy Supervisory-Addendum Brief Verification & Attestation Participated in pt care: history, MDM, physical Personally performed: exam, history, MDM, supervision of care Care discussed with: Medical Student Procedures: n/a Results interpretation: Verified all documentation Verification and Attestation of Medical Student E/M Service A medical student performed and documented this service in my presence. I reviewed and verified all information documented by the medical student and made modifications to such information, when appropriate. I personally performed the physical exam and medical decision making. Kala Hermosillo, Feb 03, 2022,15:50 CARMENZA MULLIGAN Feb 03, 2022 07:05 KALA HERMOSILLO DO Feb 03, 2022 15:50
[2022-02-03] MEDS: NS IV 500 ML 500 ML IV SCH (08:44)
[2022-02-03] MEDS: PANTOPRAZOLE 40 MG (PROTONIX) VIAL IV SCH ×2 (08:45→20:54)
--- NOTE | 2022-02-03 08:52 | Progress Note - Hospitalist ---
Subjective HPI/CC On Admission Date Seen by Provider: Feb 03, 2022 Pt is a 71yoCM with a PMH of CAD s/p CABG who presented to the ER due to rectal bleeding. He was out golfing and went to the bathroom and had a large bloody stool. He describes it as losing a "bucket of blood" in the toilet. He then went and sat in the clubhouse for a while. He then went to bring his golfcart back and after driving away he got off the golf cart and nearly passed out and had another large bloody BM. He was unable to get off the ground for roughly an hour following this and eventually crawled up to his golf cart and called for help from the golf cart staff. When they arrived he had another large bloody stool and then called EMS. EMS reports he was found in a large amount of blood and had very low BP (note reports SBP of 60s, patient reports in the 40s). He was fluid resuscitated in the ER and given 2 units of pRBCs. He reported to the ER about having some abd pain and taking a nitro pill but he did not disclose this to me. He reports feeling much better this morning. Of note he did have 2 colonoscopies in the last 2 months where he had 20+ polyps removed, the most recent colonoscopy was on 01/27. Subjective/Events-last exam Pt reports doing well. Only complaint is about not eating and discomfort from bed. Objective Exam Vital Signs Vital Signs Date Time Temp Pulse Resp B/P (MAP) Pulse Ox O2 Delivery O2 Flow Rate FiO2 02/03/22 10:00 62 31 115/70 (85) 96 Room Air 02/03/22 07:58 36.2 02/01/22 21:40 21 Capillary Refill : Less Than 3 Seconds General Appearance: No Apparent Distress, WD/WN Respiratory: Lungs Clear, No Respiratory Distress Cardiovascular: Regular Rate, Rhythm, No Murmur Neurologic/Psychiatric: Alert, Oriented x3 Results/Procedures Lab Laboratory Tests 02/03/22 05:06 Patient resulted labs reviewed. Imaging: Reviewed Imaging Report Assessment/Plan Assessment and Plan Assess & Plan/Chief Complaint GI Bleed Hemorrhagic shock Hgb up to 12.8 today without further blood transfusion BP improved Surgery consulted, appreciate recs Has been off anticoagulation at home for a few months, continue to hold Advance to clear liquid diet HTN CAD s/p CABG HLD Hold home meds for now COPD MAT protocol Continue home inhalers DVT ppx: Hold for GI bleed Diagnosis/Problems Diagnosis/Problems (1) CAD (coronary artery disease) (2) Essential (primary) hypertension (3) HLD (hyperlipidemia) (4) COPD (chronic obstructive pulmonary disease) (5) Hemorrhagic shock Status: Acute (6) Rectal bleeding Status: Acute (7) History of colonic polyps ISABEL CASTAÑEDA MD Feb 03, 2022 08:52
[2022-02-03 16:00] VITALS: BP 136/63
[2022-02-03 19:51] VITALS: BP 145/73
[2022-02-03 23:22] VITALS: BP 121/58
[2022-02-04 03:22] VITALS: BP 123/66
[2022-02-04 05:31] LABS: HEMOGLOBIN 12.1 g/dL (13.3-17.7); MEAN CORPUSCULAR VOLUME 98 fL (80-99)
[2022-02-04 05:33] LABS: BASOPHILS # (AUTO) 0.1 10^3/uL (0.0-0.1); BASOPHILS % (AUTO) 1 % (0-10); EOSINOPHILS # (AUTO) 0.2 10^3/uL (0.0-0.3); EOSINOPHILS % (AUTO) 4 % (0-10); HEMATOCRIT 36 % (40-54); LYMPHOCYTES # (AUTO) 2.4 10^3/uL (1.0-4.0); LYMPHOCYTES % (AUTO) 42 % (12-44); MEAN CORPUSCULAR HEMOGLOBIN 33 pg (25-34); MEAN CORPUSCULAR HGB CONC 34 g/dL (32-36); MEAN PLATELET VOLUME 10.5 fL (9.0-12.2); MONOCYTES # (AUTO) 0.5 10^3/uL (0.0-1.0); MONOCYTES % (AUTO) 9 % (0-12); NEUTROPHILS # (AUTO) 2.6 10^3/uL (1.8-7.8); NEUTROPHILS % (AUTO) 44 % (42-75); WHITE BLOOD COUNT 5.8 10^3/uL (4.3-11.0)
[2022-02-04 05:41] LABS: PLATELET COUNT 134 10^3/uL (130-400)
[2022-02-04 05:51] LABS: ALBUMIN 3.6 GM/DL (3.2-4.5); BILIRUBIN,TOTAL 0.8 MG/DL (0.1-1.0); CALCIUM 8.8 MG/DL (8.5-10.1); CREATININE SERUM 1.12 MG/DL (0.60-1.30); MAGNESIUM 1.9 MG/DL (1.6-2.4); PHOSPHORUS 2.8 MG/DL (2.3-4.7); POTASSIUM 3.6 MMOL/L (3.6-5.0); TOTAL PROTEIN 6.1 GM/DL (6.4-8.2)
[2022-02-04] MEDS: MAGNESIUM 1 GM/100 ML IVPB 100 ML IV SCH (05:56)
[2022-02-04] MEDS: POTASSIUM CL 10MEQ/50ML IVPB 50 ML IV SCH (05:56)
[2022-02-04] MEDS: KCL 20 MEQ TAB (K-DUR) PO SCH (05:56)
[2022-02-04] MEDS ORDERED: KCL 20 MEQ TAB (K-DUR) PO ONE (06:00)
--- NOTE | 2022-02-04 06:26 | Progress Note - Surgery ---
[facility] 02/04/22 0626: Subjective Date Seen by a Provider: Feb 04, 2022 Time Seen by a Provider: 06:22 Subjective/Events-last exam Pt is feeling better. His abd pain is a 1/10 constantly and gets up to a 6/10 with reaching for or lifting items. He states he had BM last evening that was d ark. He is doing well on clear liquid diet. Objective Exam Vital Signs Date Time Temp Pulse Resp B/P (MAP) Pulse Ox O2 Delivery O2 Flow Rate FiO2 02/04/22 03:22 36.2 50 16 123/66 (85) 97 Room Air 02/04/22 01:00 53 02/03/22 23:22 36.4 53 16 121/58 (79) 95 Room Air 02/03/22 20:00 Room Air 02/03/22 19:51 36.3 50 20 145/73 (97) Room Air 02/03/22 19:03 60 02/03/22 16:00 36.4 51 19 136/63 (87) 94 Room Air 02/03/22 14:06 100 Room Air 02/03/22 12:50 53 02/03/22 12:00 36.6 02/03/22 10:00 62 31 115/70 (85) 96 Room Air 02/03/22 09:00 63 17 119/73 (88) 94 Room Air 02/03/22 08:00 95 Room Air 02/03/22 08:00 59 12 126/77 (93) 93 Room Air 02/03/22 07:58 36.2 02/03/22 07:27 50 02/03/22 07:00 55 8 115/70 (85) 92 Room Air I & O0 02/04/22 07:00 Intake Total 3950 ml Output Total 675 ml Balance 3275 ml Capillary Refill : Less Than 3 Seconds General Appearance: No Apparent Distress, WD/WN HEENT: PERRL/EOMI, Normal ENT Inspection Neck: Full Range of Motion, Normal Inspection, Non Tender Respiratory: Chest Non Tender, No Accessory Muscle Use, No Respiratory Distress Cardiovascular: Regular Rate, Rhythm, No JVD Gastrointestinal: soft; No guarding; tenderness (minimal across abdomen in band distribution, unchanged) Extremity: Normal Capillary Refill, Non Tender Neurologic/Psychiatric: Alert, Oriented x3 Skin: Normal Color, Warm/Dry Lymphatic: No Adenopathy Results Lab Laboratory Tests 02/04/22 05:03: White Blood Count 5.8, Red Blood Count 3.65L, Hemoglobin 12.1L, Hematocrit 36L, Mean Corpuscular Volume 98, Mean Corpuscular Hemoglobin 33, Mean Corpuscular Hemoglobin Concent 34, Red Cell Distribution Width 17.4H, Platelet Count 134, Mean Platelet Volume 10.5, Immature Granulocyte % (Auto) 0, Neutrophils (%) (Auto) 44, Lymphocytes (%) (Auto) 42, Monocytes (%) (Auto) 9, Eosinophils (%) (Auto) 4, Basophils (%) (Auto) 1, Neutrophils # (Auto) 2.6, Lymphocytes # (Auto) 2.4, Monocytes # (Auto) 0.5, Eosinophils # (Auto) 0.2, Basophils # (Auto) 0.1, Immature Granulocyte # (Auto) 0.0, Percent Immature Platelet Fraction 7.2, Sodium Level 136, Potassium Level 3.6, Chloride Level 107, Carbon Dioxide Level 19L, Anion Gap 10, Blood Urea Nitrogen 10, Creatinine 1.12, Estimat Glomerular Filtration Rate 69, BUN/Creatinine Ratio 9, Glucose Level 89, Calcium Level 8.8, Corrected Calcium 9.1, Phosphorus Level 2.8, Magnesium Level 1.9, Total Bilirubin 0.8, Aspartate Amino Transf (AST/SGOT) 22, Alanine Aminotransferase (ALT/SGPT) 13, Alkaline Phosphatase 40, Total Protein 6.1L, Albumin 3.6 Microbiology 02/01/22 MRSA Screen - Final, Complete MRSA not isolated Assessment/Plan Assessment/Plan Assessment/Plan lower gi bleed hypotension-improved s/p colonoscopy c polypectomies on 01/27/2022 patient transfused, follow hgb and transfuse as needed, hgb stable on clear liquid diet, progress to bland foods as tolerated suspect polypectomy site bleed-conservative measures, if continues, may need to repeat colonoscopy KALA HERMOSILLO DO 02/04/221906: Subjective Subjective/Events-last exam Not having bloody bowel movements. Hemoglobin stable. Not having nausea or vomiting. Tolerating diet. No new complaints. Denies nausea vomiting fever sweats chills shortness of breath or chest pain. Wanting to go home. Objective Exam General Appearance: No Apparent Distress, WD/WN HEENT: PERRL/EOMI, Normal ENT Inspection Neck: Full Range of Motion, Supple Respiratory: Chest Non Tender, No Accessory Muscle Use, No Respiratory Distress Cardiovascular: Regular Rate, Rhythm, No JVD Gastrointestinal: soft; No guarding; tenderness (minimal across abdomen in band distribution, minute) Extremity: Normal Capillary Refill, Non Tender Neurologic/Psychiatric: Alert, Oriented x3 Skin: Normal Color, Warm/Dry Lymphatic: No Adenopathy Assessment/Plan Assessment/Plan Assessment/Plan lower gi bleed hypotension-improved s/p colonoscopy c polypectomies on 01/27/2022 hgb stable diet as tolerated suspect polypectomy site bleed-conservative measures, if continues, may need to repeat colonoscopy since hgb stable and no bleeding okay with dc home Supervisory-Addendum Brief Verification & Attestation Participated in pt care: history, MDM, physical Personally performed: exam, history, MDM, supervision of care Care discussed with: Medical Student Procedures: n/a Results interpretation: Verified all documentation Verification and Attestation of Medical Student E/M Service A medical student performed and documented this service in my presence. I reviewed and verified all information documented by the medical student and made modifications to such information, when appropriate. I personally performed the physical exam and medical decision making. Kala Heromsillo, Feb 04, 2022,19:08 CARMENZA MULLIGAN Feb 04, 2022 06:26 KALA HERMOSILLO DO Feb 04, 2022 19:07
[2022-02-04 08:09] VITALS: BP 130/82
[2022-02-04] MEDS: PANTOPRAZOLE 40 MG (PROTONIX) VIAL IV SCH (08:17)
--- NOTE | 2022-02-04 09:13 | Discharge Inst-Simple/Standard ---
Discharge Inst-Standard Discharge Medications New, Converted or Re-Newed RX: Transmitted to Pharmacy Patient Instructions/Follow Up Plan of Care/Instructions/FU: Please follow up with your PCP and with Dr Hermosillo to follow up this hospital stay. Activity as Tolerated: Yes Discharge Diet: Cardiac Diet Return to The Hospital For: Chest pain, shortness of breath, abdominal pain, blood or dark stools, or if you feel you are getting worse. ISABEL CASTAÑEDA MD Feb 04, 2022 09:13
--- NOTE | 2022-02-04 10:15 | Discharge Summary ---
Diagnosis/Chief Complaint Date of Admission Feb 01, 2022 at 8:25 pm Date of Discharge Discharge Date: Feb 04, 2022 Admission Diagnosis GI Bleed Primary Care Job Daniels MD Discharge Diagnosis (1) CAD (coronary artery disease) (2) Essential (primary) hypertension (3) HLD (hyperlipidemia) (4) COPD (chronic obstructive pulmonary disease) (5) Hemorrhagic shock Status: Acute (6) Rectal bleeding Status: Acute (7) History of colonic polyps Discharge Summary Discharge Physical Exam Allergies: Coded Allergies: No Known Drug Allergies (Unverified , 01/07/17) Vitals & I&Os Vital Signs Date Time Temp Pulse Resp B/P (MAP) Pulse Ox O2 Delivery O2 Flow Rate FiO2 02/04/22 08:09 35.9 57 18 130/82 (98) 94 Room Air 02/01/22 21:40 21 General Appearance: No Apparent Distress, WD/WN Respiratory: Lungs Clear Cardiovascular: Regular Rate, Rhythm Gastrointestinal: Normal Bowel Sounds Neurologic/Psychiatric: Alert, Oriented x3 Hospital Course Patient was admitted to the hospital secondary to lower GI bleed. He was quite hypotensive on arrival and there was concern for hemorrhagic shock. He was given 2 units of blood immediately in the emergency department and hemoglobin stabilized along with blood pressures. He did just have a colonoscopy with polypectomy on January 27 and this was likely the etiology of his bleed. His hemoglobin remained stable and he had no further bloody bowel movements. His diet was advanced and he tolerated this well. Surgery was consulted and managed conservatively. He was discharged home in stable improved condition to follow- up with Dr. Hermosillo as already scheduled next week and with his primary care physician, [facility] Mayorga at [facility]. Labs (last 24 hrs) Laboratory Tests 02/04/22 05:03: White Blood Count 5.8, Red Blood Count 3.65L, Hemoglobin 12.1L, Hematocrit 36L, Mean Corpuscular Volume 98, Mean Corpuscular Hemoglobin 33, Mean Corpuscular Hemoglobin Concent 34, Red Cell Distribution Width 17.4H, Platelet Count 134, Mean Platelet Volume 10.5, Immature Granulocyte % (Auto) 0, Neutrophils (%) (Auto) 44, Lymphocytes (%) (Auto) 42, Monocytes (%) (Auto) 9, Eosinophils (%) (Auto) 4, Basophils (%) (Auto) 1, Neutrophils # (Auto) 2.6, Lymphocytes # (Auto) 2.4, Monocytes # (Auto) 0.5, Eosinophils # (Auto) 0.2, Basophils # (Auto) 0.1, Immature Granulocyte # (Auto) 0.0, Percent Immature Platelet Fraction 7.2, Sodium Level 136, Potassium Level 3.6, Chloride Level 107, Carbon Dioxide Level 19L, Anion Gap 10, Blood Urea Nitrogen 10, Creatinine 1.12, Estimat Glomerular Filtration Rate 69, BUN/Creatinine Ratio 9, Glucose Level 89, Calcium Level 8.8, Corrected Calcium 9.1, Phosphorus Level 2.8, Magnesium Level 1.9, Total Bilirubin 0.8, Aspartate Amino Transf (AST/SGOT) 22, Alanine Aminotransferase (ALT/SGPT) 13, Alkaline Phosphatase 40, Total Protein 6.1L, Albumin 3.6 Microbiology 02/01/22 MRSA Screen - Final, Complete MRSA not isolated Patient resulted labs reviewed. Pending Labs Laboratory Tests 02/04/22 05:03: White Blood Count 5.8, Red Blood Count 3.65, Hemoglobin 12.1, Hematocrit 36, Mean Corpuscular Volume 98, Mean Corpuscular Hemoglobin 33, Mean Corpuscular Hemoglobin Concent 34, Red Cell Distribution Width 17.4, Platelet Count 134, Mean Platelet Volume 10.5, Immature Granulocyte % (Auto) 0, Neutrophils (%) (Auto) 44, Lymphocytes (%) (Auto) 42, Monocytes (%) (Auto) 9, Eosinophils (%) (Auto) 4, Basophils (%) (Auto) 1, Neutrophils # (Auto) 2.6, Lymphocytes # (Auto) 2.4, Monocytes # (Auto) 0.5, Eosinophils # (Auto) 0.2, Basophils # (Auto) 0.1, Immature Granulocyte # (Auto) 0.0, Percent Immature Platelet Fraction 7.2, Sodium Level 136, Potassium Level 3.6, Chloride Level 107, Carbon Dioxide Level 19, Anion Gap 10, Blood Urea Nitrogen 10, Creatinine 1.12, Estimat Glomerular Filtration Rate 69, BUN/Creatinine Ratio 9, Glucose Level 89, Calcium Level 8.8, Corrected Calcium 9.1, Phosphorus Level 2.8, Magnesium Level 1.9, Total Bilirubin 0.8, Aspartate Amino Transf (AST/SGOT) 22, Alanine Aminotransferase (ALT/SGPT) 13, Alkaline Phosphatase 40, Total Protein 6.1, Albumin 3.6 Imaging: Reviewed Imaging Report Discussion & Recommendations Discharge Planning: >30 minutes discharge planning Discharge Home Medications: Active Scripts Active No Active Prescriptions or Reported Medications Instructions to patient/family Please see electronic discharge instructions given to patient. ISABEL CASTAÑEDA MD Feb 04, 2022 10:15 am
[2022-02-04 12:02] VITALS: BP 143/69
[2022-02-04 14:20] VITALS: BP 143/69
== END 2022-02-04 14:20 | disposition home or self-care (01) | DRG 377 ==
LOC: EDUNIT# 19:03 → ER 19:04 → ICU 20:25 → 4TH 02-03 13:53
PROVIDERS: ADMIT Internal Medicine; ATTEND Internal Medicine
DX: K92.1 Melena (principal); R57.8 Other shock; D62 Acute posthemorrhagic anemia; Z95.1 Presence of aortocoronary bypass graft; Z95.5 Presence of coronary angioplasty implant and graft; J44.9 Chronic obstructive pulmonary disease, unspecified; I25.10 Atherosclerotic heart disease of native coronary artery without angina pectoris; I10 Essential (primary) hypertension; M19.90 Unspecified osteoarthritis, unspecified site; G89.29 Other chronic pain; M54.9 Dorsalgia, unspecified; E03.9 Hypothyroidism, unspecified; F17.210 Nicotine dependence, cigarettes, uncomplicated
CPT/HCPCS: 36415; 74019; 80053; 83735; 84100; 85025; 85027; 86850; 86900; 86901; 86920; 87081; 94760